=== PATIENT | male | born 1960 | race Hispanic/Latino ===

== ENCOUNTER 2019-05-05 10:29 | Emergency (ER) | payer MEDICARE ==
--- OUTSIDE RECORDS SUMMARY | 2019-05-05 10:31 | XMS REPORT | Summary of Care ---
:[address] [facility] Address [address] [place] [address] Care Team Providers Name Role Phone Brian Riley MD Primary Care Provider Reason for Visit Reason Comments Refill Request Encounter Details Date Type Department Care Team Description 11/16/2018 Refill [facility] Brian Riley MD Refill Request - [address] [address] [place] [address] Allergies No Known Allergiesdocumented as of this encounter (statuses as of 11/21/2018) Medications Medication Sig Dispensed Refills Start Date End Date Status lisinopril-hydrochloro Take 1 tablet by 90 tablet 4 03/29/2018 Active thiazide 20-25 mg per mouth every tabletIndications: morning. Essential hypertension gabapentin 300 mg Take 1 capsule 270 capsule 4 03/29/2018 Active capsuleIndications: by mouth 3 Low back pain of over (three) times 3 months duration daily. allopurinol 300 mg Take 1 tablet by 90 tablet 4 03/29/2018 Active tabletIndications: mouth every Idiopathic gout, morning. unspecified chronicity, unspecified site levothyroxine 75 mcg TAKE 1 TABLET BY 90 tablet 4 03/29/2018 Active tabletIndications: MOUTH EVERY Hypothyroidism, MORNING unspecified type DULoxetine 30 mg Take 3 capsules 270 capsule 4 03/29/2018 Active capsuleIndications: by mouth daily. 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 02/18/2017 Major depressive disorder 11/25/2016 Obesity (BMI 30-39.9) 05/27/2016 Morbid obesity with body mass index of 40.0-49.9 04/08/2016 Morbid obesity with body mass index of 50 or higher 04/08/2016 Pain 04/08/2016 Alcoholism in recovery 06/05/2015 Hypothyroid 06/05/2015 Essential hypertension 06/05/2015 Gout 06/05/2015 Alcoholism in remission documented as of this encounter (statuses as of 11/21/2018) Social History Tobacco Use Types Packs/Day Years Used Date Never Smoker Smokeless Tobacco: Never Used Alcohol Use Drinks/Week oz/Week Comments No 20 Shots of liquor 12.0 Former drinker - quit as of 0 Standard drinks or equivalent November 2016 Sex Assigned at Date Recorded Not on file Job Start Date Occupation Industry Not on file Not on file Not on file Travel History Travel Start Travel End No recent travel history available. documented as of this encounter Last Filed Vital Signs Not on filedocumented in this encounter Plan of Treatment Health Maintenance Due Date Last Done Comments HEPATITIS C (HCV) SCREEN 1960 PNEUMOCOCCAL 0-64 YEARS COMBINED SERIES (1 of 1 - 1964 PPSV23) DTaP,Tdap,and Td Vaccines (1 - Tdap) 1977 COLONOSCOPY 2008 Zoster Recombinant Vaccine (SHINGRIX) (1 of 2) 2008 INFLUENZA VACCINE (#1) 2018 documented as of this encounter Implants Implanted Type Area Multimedia Editor Device Shelf Model / Identifier Expiration Serial / Lot Date Cement CEMENT Right: Steve [id number] / Implanted: Qty: 2 on 04/08/2016 by Noel Sarmiento MD at [facility] Knee [id number] / [id number] Cement CEMENT Right: Steve 11/04/2020 [id number] / Implanted: Qty: 4 on 03/15/2017 by Murphy Greer MD at [facility] Knee [id number] / [id number] Bearing KNEE Right: Biomet 02/04/2021 [id number] / Implanted: Qty: 1 on 04/08/2016 by Noel Sarmiento MD at [facility] Knee [id number] / [id number] Femoral Right KNEE Right: Biomet 07/17/2024 [id number] / Implanted: Qty: 1 on 04/08/2016 by Noel Sarmiento MD at [facility] Knee [id number] / [id number] Distal Femoral Augment With [place] KNEE Right: Biomet 01/22/2026 [id number] / Implanted: Qty: 1 on 03/15/2017 by Murphy Greer MD at [facility] Knee [id number] / [id number] Vanguard Knee System Femmoral Right With Screw KNEE Right: Biomet 2026 [id number] / Implanted: Qty: 1 on 03/15/2017 by Murphy Greer MD at [facility] Knee [id number] / [id number] Distal Femoral Augment With [place] KNEE Right: Biomet 10/10/2026 [id number] / Implanted: Qty: 1 on 03/15/2017 by Murphy Greer MD at [facility] Knee [id number] / [id number] Dcm Tibial Bearing KNEE Right: Biomet 03/08/2018 [id number] / Implanted: Qty: 1 on 03/15/2017 by Murphy Greer MD at [facility] Knee [id number] / [id number] Tibial Augment With Bolts KNEE Right: Biomet 05/06/2026 [id number] / Implanted: Qty: 1 on 03/15/2017 by Murphy Greer MD at [facility] Knee [id number] / [id number] Tibial Cruciate Wing KNEE Right: Biomet 06/10/2025 [id number] / Implanted: Qty: 1 on 03/15/2017 by Murphy Greer MD at [facility] Knee [id number] / [id number] Tibial Tray KNEE Right: Biomet 11/02/2026 [id number] / Implanted: Qty: 1 on 03/15/2017 by Murphy Greer MD at [facility] Knee [id number] / [id number] Tibial Augment With Bolts KNEE Right: Biomet 05/06/2026 [id number] / Implanted: Qty: 1 on 03/15/2017 by Murphy Greer MD at [facility] Knee [id number] / [id number] Patella PATELLA Right: Biomet 02/19/2021 [id number] / Implanted: Qty: 1 on 04/08/2016 by Noel Sarmiento MD at [facility] Knee [id number] / [id number] Tibial Plate PLATE Right: Biomet 09/05/2024 [id number] / Implanted: Qty: 1 on 04/08/2016 by Noel Sarmiento MD at [facility] Knee [id number] / [id number] Splined Knee Stem V2 Stem Right: Biomet 02/05/2023 [id number] / Implanted: Qty: 1 on 03/15/2017 by Murphy Greer MD at [facility] Knee [id number] / [id number] Splined Knee Stem V2 Stem Right: Biomet 05/07/2023 [id number] / Implanted: Qty: 1 on 03/15/2017 by Murphy Greer MD at [facility] Knee [id number] / [id number] documented as of this encounter Results Not on filedocumented in this encounter Visit Diagnoses Diagnosis Erectile dysfunction, unspecified erectile dysfunction type documented in this encounter Insurance Payer Benefit Plan / Subscriber ID Effective Phone Address Type Group Dates [place] AARP MEDICARE [id number] 2016-Prese Medicare Adv HEALTHCARE - COMPLETE nt HMO MANAGED MEDICARE documented as of this encounter
--- OUTSIDE RECORDS SUMMARY | 2019-05-05 10:31 | XMS REPORT | Summary of Care ---
:1960 Author Organization [facility] [[email or web address]] - [facility] Address [address] [place] [address] Care Team Providers Name Role Phone Brian Riley MD Primary Care Provider Reason for Visit Reason Comments Refill Request Encounter Details Date Type Department Care Team Description 11/17/2018 Telephone [facility] Family Brian Riley, Refill Request Medicine - Hardeep MCCOY [address] [place] [address] [place] [address] [facility] [place] [phone] Allergies No Known Allergiesdocumented as of this encounter (statuses as of 11/17/2018) Medications Medication Sig Dispensed Refills Start Date End Date Status lisinopril-hydrochl Take 1 tablet 90 tablet 4 03/29/2018 Active orothiazide 20-25 by mouth every mg per morning. tabletIndications: Essential hypertension gabapentin 300 mg Take 1 capsule 270 capsule 4 03/29/2018 Active capsuleIndications: by mouth 3 Low back pain of (three) times over 3 months daily. duration allopurinol 300 mg Take 1 tablet 90 tablet 4 03/29/2018 Active tabletIndications: by mouth every Idiopathic gout, morning. unspecified chronicity, unspecified site levothyroxine 75 TAKE 1 TABLET 90 tablet 4 03/29/2018 Active mcg BY MOUTH tabletIndications: EVERY MORNING Hypothyroidism, unspecified type DULoxetine 30 mg Take 3 270 capsule 4 03/29/2018 Active capsuleIndications: capsules by Current moderate mouth daily. episode of major depressive disorder without prior episode sildenafil (VIAGRA) Take once a 4 tablet 12 11/17/2018 Active 100 mg day 1 hour tabletIndications: prior to Erectile sexual dysfunction, activity prn unspecified erectile dysfunction type sildenafil (VIAGRA) Take once a 2 tablet 12 07/05/2018 Discontinued 100 mg day 1 hour 9 tabletIndications: prior to Erectile sexual dysfunction, activity prn unspecified erectile dysfunction type documented as of this encounter (statuses as of 11/17/2018) Active Problems Problem Noted Date S/P revision [...] as of this encounter (statuses as of 11/17/2018) Social History Tobacco Use Types Packs/Day Years [...] of this encounter Implants Implanted Type Area Solar Sales Rep Device Shelf Model / Identifier Expiration Serial / Lot Date Cement CEMENT Right: Steve [id number] / Implanted: Qty: 2 on 04/08/2016 by Noel Sarmiento MD at [facility] Knee [id number] / [id number] Cement CEMENT Right: Steve 11/04/2020 [id number] / Implanted: Qty: 4 on 03/15/2017 by Murphy Greer MD at [facility] Knee [id number] / [id number] Bearing KNEE Right: Biomet 02/04/2021 [id number] / Implanted: Qty: 1 on 04/08/2016 by Noel Sarmiento MD at [facility] Knee [id number] / [id number] Femoral Right KNEE Right: Biomet 07/17/2024 115456 / Implanted: Qty: 1 on 04/08/2016 by Noel Sarmiento MD at [facility] Knee [id number] / [id number] Distal Femoral Augment With [place] KNEE Right: Biomet 01/22/2026 015074 / Implanted: Qty: 1 on 03/15/2017 by Murphy Greer MD at [facility] Knee [id number] / [id number] Vanguard Knee System Femmoral Right With Screw KNEE Right: Biomet 2026 113969 / Implanted: Qty: 1 on 03/15/2017 by Murphy Greer MD at [facility] Knee [id number] / [id number] Distal Femoral Augment With [place] KNEE Right: Biomet 10/10/2026 439405 / Implanted: Qty: 1 on 03/15/2017 by Murphy Greer MD at [facility] Knee [id number] / [id number] Dcm Tibial Bearing KNEE Right: Biomet 03/08/2018 046811 / Implanted: Qty: 1 on 03/15/2017 by Murphy Greer MD at [facility] Knee [id number] / [id number] Tibial Augment With Bolts KNEE Right: Biomet 05/06/2026 056298 / Implanted: Qty: 1 on 03/15/2017 by Murphy Greer MD at [facility] Knee [id number] / [id number] Tibial Cruciate Wing KNEE Right: Biomet 06/10/2025 446176 / Implanted: Qty: 1 on 03/15/2017 by Murphy Greer MD at [facility] Knee [id number] / [id number] Tibial Tray KNEE Right: Biomet 11/02/2026 944468 / Implanted: Qty: 1 on 03/15/2017 by Murphy Greer MD at [facility] Knee [id number] / [id number] Tibial Augment With Bolts KNEE Right: Biomet 05/06/2026 491489 / Implanted: Qty: 1 on 03/15/2017 by Murphy Greer MD at [facility] Knee [id number] / [id number] Patella PATELLA Right: Biomet 02/19/2021 [id number] / Implanted: Qty: 1 on 04/08/2016 by Noel Sarmiento MD at [facility] Knee [id number] / [id number] Tibial Plate PLATE Right: Biomet 09/05/2024 881317 / Implanted: Qty: 1 on 04/08/2016 by Noel Sarmiento MD at [facility] Knee [id number] / [id number] Splined Knee Stem V2 Stem Right: Biomet 02/05/2023 614777 / Implanted: Qty: 1 on 03/15/2017 by Murphy Greer MD at [facility] Knee 917680 / [id number] Splined Knee Stem V2 Stem Right: Biomet 05/07/2023 795606 / Implanted: Qty: 1 on 03/15/2017 by Murphy Greer MD at [facility] Knee [id number] / [id number] documented as of this encounter Results Not on filedocumented in this encounter Visit Diagnoses Diagnosis Erectile dysfunction, unspecified erectile dysfunction type - Primary documented in this encounter Insurance Payer Benefit Plan / Subscriber ID Effective Phone Address Type Group Dates [place] AARP MEDICARE [id number] 2016-Prese Medicare Adv HEALTHCARE - COMPLETE [facility] MANAGED MEDICARE documented as of this encounter
--- OUTSIDE RECORDS SUMMARY | 2019-05-05 10:31 | XMS REPORT ---
:1960 [facility] Address [address] [place] [address] [address] Care Team Providers Name Role Phone NICO MARKHAM Unavailable Unavailable Problems This patient has no known problems. Allergies, Adverse Reactions, Alerts This patient has no known allergies or adverse reactions. Medications This patient has no known medications. Results Test Description Test Time Test Comments Text Results Atomic Results Result Comments AFB CULTURE + SMEAR 2017-08-18 14:18:00 Test Item Value Reference Range Comments CULTURE (BEAKER) (test ygtv=7011) No acid-fast bacilli isolated in 42 days AFB SMEAR (BEAKER) (test zrxd=998) No acid fast bacilli seen FUNGUS CULTURE + [id number] 09:07:00 Test Item Value Reference Range Comments CULTURE (BEAKER) (test No fungus isolated in 28 days dxoq=9471) FUNGUS SMEAR (BEAKER) (test No fungi seen egty=1150) ANAEROBIC [id number] 02:43:00 Test Item Value Reference Range Comments CULTURE (BEAKER) (test zfco=0089) No anaerobes isolated SURGICALLY OBTAINED CULTURE + GRAM [id number] 10:55:00 Test Item Value Reference Range Comments CULTURE (BEAKER) (test iynt=0842) No growth GRAM STAIN RESULT (BEAKER) (test No WBCs dyjc=9804) GRAM STAIN RESULT (BEAKER) (test No organisms seen zljm=18998) SPIN/CONCENTRATION [id number] 22:18:00 Test Item Value Reference Range Comments CONCENTRATION CHARGED (BEAKER) (test evlf=9306) Done TISSUE [id number] 15:56:00Surgical Pathology Report Case: [id number] Authorizing Provider: Nico Markham Collected: 06/30/2017 0943 MD Johan [facility] Received: 2017 0958 SERVICES Pathologist: Lea Betts MD Specimen: Explant, RIGHT KNEE LINER RIGHT KNEE LINER, REMOVAL: - ORTHOPEDIC HARDWARE, GROSS IDENTIFICATION ONLY Signing Pathologist Direct Phone Line: [phone] signed by Lea Betts MD on 06/30/2017 at 3:56 [facility]/[id number] mechanical complications of internal left knee prosthesisRight knee linerThe specimen is received in a fluidless container labeled with the patient's information and labeled "right knee liner" and consists of orthopedic hardware, a spacer measuring 7.5 x 4 x 1 cm and metal hardware measuring 4.5 x 0.4 x 0.2 cm. The spacer's serial number is "[id number]". The specimen is submitted for gross identification./ewRAD, KNEE, 1 OR 2 VIEWS, [id number] 11:02:00Reason for exam:->tkaShould this be performed at the bedside?->YesFINAL REPORT Knee, right , two views INDICATION: TKA COMPARISON: None available IMPRESSION: There has been total knee arthroplasty with satisfactory hardware alignment and no evident periprosthetic fracture. There are operative changes in the soft tissues with edema and gas. There is gas and fluid in the joint space. An intraoperative report was not requested for this exam. Please refer to the operative note for additional details. Signed: Eugene Gutierrez MDReport VerifiedDate/Time: 06/30/2017 11:02:15 Reading Location: [facility] Radiology Reading Room
--- OUTSIDE RECORDS SUMMARY | 2019-05-05 10:31 | XMS REPORT | Summary of Care ---
:1960 Author Organization [facility] Address [address] [place] [address] Care Team Providers Name Role Phone Brian Riley MD Primary Care Provider Reason for Referral (Routine) Status Reason Specialty Diagnoses / Referred By Referred To Procedures Contact Contact New Request Patient is Diagnoses Arthritis of knee, left Brian Riley, Established with a Procedures CONSULT/REFERRAL ORTHOPAEDIC SURGERY MD Noel Ayala, Specific Provider [address] [place] [address] MD COLON [address] [place] [phone] [facility] Phone: [place] [address] Fax: Reason for Visit Reason Comments Referral/consult Encounter Details Date Type Department Care Team Description 11/18/2018 Telephone [facility] Family Brian Riley, Referral/ consult Medicine - Hardeep MCCOY [address] [place] [address] [place] [address] [place], [place] [phone] [address] Allergies No Known Allergiesdocumented as of this encounter (statuses as of 11/18/2018) Medications Medication Sig Dispensed Refills Start Date [...] prior episode sildenafil (VIAGRA) Take once a day 4 tablet 12 11/17/2018 Active 100 mg 1 hour prior to tabletIndications: sexual activity Erectile dysfunction, prn unspecified erectile dysfunction type documented as of this encounter (statuses as of 11/18/2018) Active Problems Problem Noted Date S/P revision [...] as of this encounter (statuses as of 11/18/2018) Social History Tobacco Use Types Packs/Day Years [...] of this encounter Implants Implanted Type Area Boring Machine Set Up Operator Jig Device Shelf Model / Identifier Expiration Serial / Lot Date Cement CEMENT Right: Steve [id number] / Implanted: Qty: 2 on 04/08/2016 by Noel Sarmiento MD at [facility] Knee [id number] / [id number] Cement CEMENT Right: Steve 11/04/202058-2364-292- / Implanted: Qty: 4 on 03/15/2017 by Murphy Greer MD at [facility] Knee [id number] / [id number] Bearing KNEE Right: Biomet 02/04/2021 263493 / Implanted: Qty: 1 on 04/08/2016 by Noel Sarmiento MD at [facility] Knee [id number] / [id number] Femoral Right KNEE Right: Biomet 07/17/2024 069037 / Implanted: Qty: 1 on 04/08/2016 by Noel Sarmiento MD at [facility] Knee [id number] / [id number] Distal Femoral Augment With [place] KNEE Right: Biomet 01/22/2026 208070 / Implanted: Qty: 1 on 03/15/2017 by Murphy Greer MD at [facility] Knee [id number] / [id number] Vanguard Knee System Femmoral Right With Screw KNEE Right: Biomet 2026 [id number] / Implanted: Qty: 1 on 03/15/2017 by Murphy Greer MD at [facility] Knee [id number] / [id number] Distal Femoral Augment With [place] KNEE Right: Biomet 10/10/2026 494063 / Implanted: Qty: 1 on 03/15/2017 by Murphy Greer MD at [facility] Knee [id number] / [id number] Dcm Tibial Bearing KNEE Right: Biomet 03/08/2018 [id number] / Implanted: Qty: 1 on 03/15/2017 by Murphy Greer MD at [facility] Knee [id number] / [id number] Tibial Augment With Bolts KNEE Right: Biomet 05/06/2026 108990 / Implanted: Qty: 1 on 03/15/2017 by Murphy Greer MD at [facility] Knee [id number] / [id number] Tibial Cruciate Wing KNEE Right: Biomet 06/10/2025 725837 / Implanted: Qty: 1 on 03/15/2017 by Murphy Greer MD at [facility] Knee 297989 / [id number] Tibial Tray KNEE Right: Biomet 11/02/2026 489110 / Implanted: Qty: 1 on 03/15/2017 by Murphy Greer MD at [facility] Knee [id number] / [id number] Tibial Augment With Bolts KNEE Right: Biomet 05/06/2026 995124 / Implanted: Qty: 1 on 03/15/2017 by Murphy Greer MD at [facility] Knee [id number] / [id number] Patella PATELLA Right: [employer]omet 02/19/2021 763657 / Implanted: Qty: 1 on 04/08/2016 by Noel Sarmiento MD at [facility] Knee [id number] / [id number] Tibial Plate PLATE Right: Biomet 09/05/2024 273222 / Implanted: Qty: 1 on 04/08/2016 by Noel Sarmiento MD at [facility] Knee [id number] / [id number] Splined Knee Stem V2 Stem Right: Biomet 02/05/2023 225873 / Implanted: Qty: 1 on 03/15/2017 by Murphy Greer MD at [facility] Knee [id number] / [id number] Splined Knee Stem V2 Stem Right: Biomet 05/07/2023 594956 / Implanted: Qty: 1 on 03/15/2017 by Murphy Greer MD at [facility] Knee 985384 / [id number] documented as of this encounter Results Not on filedocumented in this encounter Visit Diagnoses Diagnosis Arthritis of knee, left - Primary Unspecified arthropathy, lower leg documented in this encounter Insurance Payer Benefit Plan / Subscriber ID Effective Phone Address Type Group Dates [place] AARP MEDICARE [id number] 2016-Prese Medicare Adv HEALTHCARE - COMPLETE nt [place] MANAGED MEDICARE documented as of this encounter
--- OUTSIDE RECORDS SUMMARY | 2019-05-05 10:32 | XMS REPORT | Summary of Care ---
:1960 Author Organization [facility] - [facility] Address [address] [place] [address] Care Team Providers Name Role Phone Brian Riley MD Primary Care Provider Reason for Visit Reason Comments Physical Wellness Exam LAB WORK Encounter Details Date Type Department Care Team Description 04/12/2019 Office Visit [facility] Family Brian Riley Essential hypertension (Primary Dx); Medicine - [facility]ala MD Acquired hypothyroidism; [facility] [address] [place] [address] Idiopathic gout, unspecified chronicity, unspecified site; [place], [place] Benign prostatic hyperplasia, unspecified whether lower urinary tract symptoms present; [phone] Low back pain of over 3 months duration; [phone] Current moderate episode of major depressive disorder without prior episode Allergies No Known Allergiesdocumented as of this encounter (statuses as of 04/12/2019) Medications Medication Sig Dispensed Refills Start End Date Status Date lisinopril-hydroch Take 1 tablet 90 tablet 4 Active lorothiazide 20-25 by mouth every 9 mg per morning. tabletIndications: Essential hypertension allopurinol 300 mg Take 1 tablet 90 tablet 4 Active tabletIndications: by mouth every 9 Idiopathic gout, morning. unspecified chronicity, unspecified site levothyroxine 75 TAKE 1 TABLET 90 tablet 4 Active mcg BY MOUTH 9 tabletIndications: EVERY MORNING Hypothyroidism, unspecified type sildenafil Take once a 4 tablet 12 Active (VIAGRA) 100 mg day 1 hour 9 tabletIndications: prior to Erectile sexual dysfunction, activity prn unspecified erectile dysfunction type acetaminophen-code TAKE 1 TABLET 0 Active ine 300-60 mg BY MOUTH EVERY 0 tablet 4 TO 6 HOURS NEEDED etodolac 500 mg TAKE 1 TABLET 0 Active tablet BY MOUTH TWICE 0 DAILY NEEDED methocarbamol 750 Take 750 mg by 0 Active mg tablet mouth 2 (two) 0 times daily. gabapentin 300 mg Take 1 capsule 270 capsule 4 Active capsuleIndications by mouth 3 0 : Low back pain of (three) times over 3 months daily. duration DULoxetine 30 mg Take 3 270 capsule 4 Active capsuleIndications capsules by 0 : Current moderate mouth daily. episode of major depressive disorder without prior episode gabapentin 300 mg Take 1 capsule 270 capsule 4 04/12/19 Discontinued capsuleIndications by mouth 3 9 20 (Reorder) : Low back pain of (three) times over 3 months daily. duration DULoxetine 30 mg Take 3 270 capsule 4 04/12/19 Discontinued capsuleIndications capsules by 9 20 (Reorder) : Current moderate mouth daily. episode of major depressive disorder without prior episode meloxicam 7.5 mg meloxicam 7.5 0 04/12/19 Discontinued tablet mg tablet 20 documented as of this encounter (statuses as of 04/12/2019) Active Problems Problem Noted Date S/P revision [...] as of this encounter (statuses as of 04/12/2019) Social History Tobacco Use Types Packs/Day Years Used Date Never Smoker Smokeless Tobacco: Never Used Alcohol Use Drinks/Week oz/Week Comments No 20 Shots of liquor 20.0 Former drinker - quit as of 0 Standard drinks or equivalent November 2016 Sex Assigned at Date Recorded Not on file Job Start Date Occupation Industry Not on file Not on file Not on file Travel History Travel Start Travel End No recent travel history available. 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 Pulse 87 04/12/2019 9:21 AM [employer] DEVELOPER Temperature 36.9 C (98.5 F) 04/12/2019 9:21 AM [employer]EL[employer] DEVELOPER Respiratory Rate - - Oxygen Saturation - - Inhaled Oxygen Concentration - - Weight 123.8 kg (273 lb) 04/12/2019 9:21 AM [employer] DEVELOPER Height 180.3 cm (5' 11") 04/12/2019 9:21 AM [employer] DEVELOPER Body Mass Index 38.08 04/12/2019 9:21 AM 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 Total of 1 attempts were made. Slight pressure and a bandage/dressing were applied to the site(s). The patient experienced no complications. The following specimens were processed according to instructions and sent to [facility] laboratories per lab order on 04/12/19: LT BLUE SST RED LAV PPT DK GREEN (LiHep) DK GREEN (SodH) YOUNG DK BLUE (K2) DK BLUE (S) ACD Blood Culture NIPT/NTD Brian Barrios MD - 04/12/2019 9:30 AM CST CC: annual exam Kevin is a 58 year old male Patient with a lot of joint and muscle aches Just had Rx's filled for pain and spasm. Hypertension Chronicity: Chronic Relieved by: Diuretics and HUMBLE inhibitors Associated symptoms: no chest pain, no headaches, no palpitations, no peripheral edema and no shortness of breath Thyroid Problem Presents for follow-up visit. Patient reports no cold intolerance, constipation , diarrhea, heat intolerance, palpitations, weight gain or weight loss. The symptoms have been stable. No Known Allergies Current Outpatient Medications Medication Sig Dispense Refill acetaminophen-codeine 300-60 mg tablet TAKE 1 TABLET BY MOUTH EVERY 4 TO 6 HOURS NEEDED etodolac 500 mg tablet TAKE 1 TABLET BY MOUTH TWICE DAILY NEEDED methocarbamol 750 mg tablet Take 750 mg by mouth 2 (two) times daily. sildenafil (VIAGRA) 100 mg tablet Take once a day 1 hour prior to sexual activity prn 4 tablet 12 allopurinol 300 mg tablet Take 1 tablet by mouth every morning. 90 tablet 4 DULoxetine 30 mg capsule Take 3 capsules by mouth daily. 270 capsule 4 gabapentin 300 mg capsule Take 1 capsule by mouth 3 (three) times daily. 270 capsule 4 levothyroxine 75 mcg tablet TAKE 1 TABLET BY MOUTH EVERY MORNING 90 tablet 4 lisinopril-hydrochlorothiazide 20-25 mg per tablet Take 1 tablet by mouth every morning. 90 tablet 4 No current facility-administered medications for this visit. Past Medical History: Diagnosis Date Alcoholism in remission Depression Diverticulitis ED (erectile dysfunction) Gout Hypertension Substance abuse Thyroid disease Past Surgical History: Procedure Laterality Date ANKLE ORIF Right ARTHROSCOPIC SHOULDER ROTATOR CUFF REPAIR Bilateral CHOLECYSTECTOMY COLONOSCOPY N/A 07/29/2016 Surgeon: Emely Vivas MD; [facility] ESOPHAGOGASTRODUODENOSCOPY N/A 07/29/2016 Surgeon: Emely Vivas MD; [facility] KNEE ARTHROSCOPY Bilateral LAPAROSCOPIC BARIATRIC GASTRIC BYPASS MANIPULATION UNDER ANESTHESIA Right 05/27/2016 Surgeon: Noel Sarmiento MD; [facility] PARTIAL 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 HI COLONOSCOPY W/BIOPSY SINGLE/MULTIPLE 07/29/2016 HI ESOPHAGOGASTRODUODENOSCOPY TRANSORAL DIAGNOSTIC 07/29/2016 TONSILLECTOMY TOTAL KNEE ARTHROPLASTY Right 04/08/2016 Surgeon: Noel Sarmiento MD; [facility] TOTAL KNEE ARTHROPLASTY REVISION Right 03/15/2017 Surgeon: Murphy Greer MD; [facility] Social History Socioeconomic History Marital status: Spouse name: Gail Virgen Number of children: Not on file Years of education: Not on file Highest education level: Not on file Occupational History Not on file Social Needs Financial resource strain: Not on file Food insecurity: Worry: Not on file Inability: Not on file Transportation needs: Medical: Not on file Non-medical: Not on file Tobacco Use Smoking status: Never Smoker Smokeless tobacco: Never Used Substance and Sexual Activity Alcohol use: No Alcohol/week: 20.0 standard drinks Types: 20 Shots of liquor per week Comment: Former drinker - quit as of November 2016 Drug use: No Sexual activity: Not Currently Partners: Female Lifestyle Physical activity: Days per week: Not on file Minutes per session: Not on file Stress: Not on file Relationships Social connections: Talks on phone: Not on file Gets together: Not on file Attends episcopal service: Not on file Active member of club or organization: Not on file Attends meetings of clubs or organizations: Not on file Relationship status: Not on file Intimate partner violence: Fear of current or ex partner: Not on file Emotionally abused: Not on file Physically abused: Not on file Forced sexual activity: Not on file Other Topics Concern Not on file Social History Narrative On disability Lives with . Family History Problem Relation Age of Onset Diabetes Mother Thyroid Mother Coronary Heart Disease Father Hypertension Father High cholesterol Father Review of Systems Constitutional: Negative for weight gain and weight loss. Respiratory: Negative for shortness of breath. Cardiovascular: Negative for chest pain and palpitations. Gastrointestinal: Negative for constipation and diarrhea. Neurological: Negative for headaches. Hematological: Negative for cold intolerance and heat intolerance. Endocrine: Negative for cold intolerance, heat intolerance, weight gain and weight loss. BP (!) 140/103 | Pulse 87 | Temp 36.9 C (98.5 F) (Oral) | Ht 5' 11" ( 1.803 m) | Wt 273 lb (123.8 kg) | BMI 38.08 kg/m Physical Exam Constitutional: He is oriented to person, place, and time. He appears well- developed and well-nourished. HENT: Head: Normocephalic and atraumatic. Eyes: Conjunctivae are normal. Neck: Normal range of motion. Neck supple. No JVD present. No tracheal deviation present. No thyromegaly present. Cardiovascular: Normal rate, regular rhythm, normal heart sounds and intact distal pulses. Exam reveals no gallop and no friction rub. No murmur heard. Pulmonary/Chest: Effort normal and breath sounds normal. No respiratory distress. He has no wheezes.He has no rales. He exhibits no tenderness. Abdominal: Soft. Bowel sounds are normal. He exhibits no distension and no mass. There is no tenderness. There is no rebound and no guarding. Musculoskeletal: Normal range of motion. He exhibits no edema or tenderness. Lymphadenopathy: He has no cervical adenopathy. Neurological: He is alert and oriented to person, place, and time. Skin: Skin is warm and dry. Diagnosis: 1. Essential hypertension CBC WITH DIFF COMP. METABOLIC PANEL (02089) LIPID PANEL (42328)(TOTAL CHOLESTEROL, TRIGLYCERIDES, HDL) CBC WITH DIFFERENTIAL 2. Acquired hypothyroidism THYROID STIMULATING HORMONE FREE T4 3. Idiopathic gout, unspecified chronicity, unspecified site URIC ACID 4. Benign prostatic hyperplasia, unspecified whether lower urinary tract symptoms present PROSTATICSPECIFIC ANTIGEN 5. Low back pain of over 3 months duration gabapentin 300 mg capsule 6. Current moderate episode of major depressive disorder without prior episode DULoxetine 30 mg capsule Follow up: prn Patient Care Team: Brian Riley MD as PCP - General ([facility]-FAMILY MEDICINE) Plan of care, desired health behaviors, goals,& medication discussed with patient. Education resources & self management tools provided and reviewed with AVS. Patient/guardian/family verbalized understanding & agrees to plan of care. Barriers to care: None Ability to manage care: Good documented in this encounter Plan of Treatment Name Type Priority Associated Diagnoses Order Schedule URIC ACID LAB Routine Idiopathic gout, Ordered: 04/12/2019 unspecified chronicity, unspecified site CBC WITH DIFF LAB Routine Essential hypertension Ordered: 04/12/2019 COMP. METABOLIC PANEL LAB Routine Essential hypertension Ordered: 2019 (34520) LIPID PANEL (28200)(TOTAL LAB Routine Essential hypertension Ordered: 04/12 CHOLESTEROL, TRIGLYCERIDES, HDL) PROSTATIC SPECIFIC LAB Routine Benign prostatic Ordered: 04/12/2019 ANTIGEN hyperplasia, unspecified whether lower urinary tract symptoms present THYROID STIMULATING LAB Routine Acquired hypothyroidism Ordered: 04/12/2019 HORMONE FREE T4 LAB Routine Acquired hypothyroidism Ordered: 04/12/2019 CBC WITH DIFFERENTIAL LAB Routine Essential hypertension Ordered: 2019 Health Maintenance Due Date Last Done Comments HEPATITIS C (HCV) SCREEN 1960 PNEUMOCOCCAL 0-64 YEARS COMBINED SERIES (1 of - 1964 PPSV23) DTaP,Tdap,and Td Vaccines (1 - Tdap) 1969 COLONOSCOPY 2008 Zoster Recombinant Vaccine (SHINGRIX) (1 of 2) 2008 INFLUENZA VACCINE (#1) 2018 documented as of this encounter Implants Implanted Type Area Exhibits Manager Device Shelf Model / Identifier Expiration Serial / Lot Date Cement CEMENT Right: Steve [id number] / Implanted: Qty: 2 on 04/08/2016 by Noel Sarmiento MD at [facility] Knee [id number] / [id number] Cement CEMENT Right: Steve 11/04/202048-8789-234- / Implanted: Qty: 4 on 03/15/2017 by Murphy Greer MD at [facility] [place] [id number] / [id number] Bearing KNEE Right: Biomet 02/04/2021 [id number] / Implanted: Qty: 1 on 04/08/2016 by Noel Sarmiento MD at [facility] [place] [id number] / [id number] Femoral Right KNEE Right: Biomet 07/17/2024 [id number] / Implanted: Qty: 1 on 04/08/2016 by Noel Sarmiento MD at [facility] [place] [id number] / [id number] Distal Femoral Augment With [place] KNEE Right: Biomet 01/22/2026 [id number] / Implanted: Qty: 1 on 03/15/2017 by Murphy Greer MD at [facility] [place] [id number] / [id number] Vanguard Knee System Femmoral Right With Screw KNEE Right: Biomet 2026 [id number] / Implanted: Qty: 1 on 03/15/2017 by Murphy Greer MD at [facility] [place] [id number] / [id number] Distal Femoral Augment With [place] KNEE Right: Biomet 10/10/2026 [id number] / Implanted: Qty: 1 on 03/15/2017 by Murphy Greer MD at [facility] [place] [id number] / [id number] Dcm Tibial Bearing KNEE Right: Biomet 03/08/2018 [id number] / Implanted: Qty: 1 on 03/15/2017 by Murphy Greer MD at [facility] [place] [id number] / [id number] Tibial Augment With Bolts KNEE Right: Biomet 05/06/2026 [id number] / Implanted: Qty: 1 on 03/15/2017 by Murphy Greer MD at [facility] [place] [id number] / [id number] Tibial Cruciate Wing KNEE Right: [employer]omet 06/10/2025 [id number] / Implanted: Qty: 1 on 03/15/2017 by Murphy Greer MD at [facility] [place] [id number] / [id number] Tibial Tray KNEE Right: [employer]omet 11/02/2026 [id number] / Implanted: Qty: 1 on 03/15/2017 by Murphy Greer MD at [facility] [place] [id number] / [id number] Tibial Augment With Bolts KNEE Right: Biomet 05/06/2026 [id number] / Implanted: Qty: 1 on 03/15/2017 by Murphy Greer MD at [facility] [place] [id number] / [id number] Patella PATELLA Right: [employer]omet 02/19/2021 [id number] / Implanted: Qty: 1 on 04/08/2016 by Noel Sarmiento MD at [facility] [place] [id number] / [id number] Tibial Plate PLATE Right: Biomet 09/05/2024 [id number] / Implanted: Qty: 1 on 04/08/2016 by Noel Sarmiento MD at [facility] [place] [id number] / [id number] Splined Knee Stem V2 Stem Right: Biomet 02/05/2023 [id number] / Implanted: Qty: 1 on 03/15/2017 by Murphy Greer MD at [facility] [place] [id number] / [id number] Splined Knee Stem V2 Stem Right: Biomet 05/07/2023 [id number] / Implanted: Qty: 1 on 03/15/2017 by Murphy Greer MD at [facility] [place] [id number] / [id number] documented as of this encounter Results Not on filedocumented in this encounter Visit Diagnoses Diagnosis Essential hypertension - Primary Unspecified essential hypertension Acquired hypothyroidism Unspecified hypothyroidism Idiopathic gout, unspecified chronicity, unspecified site Benign prostatic hyperplasia, unspecified whether lower urinary tract symptoms present Low back pain of over 3 months duration Current moderate episode of major depressive disorder without prior episode documented in this encounter Insurance Payer Benefit Plan / Subscriber ID Effective Phone Address Type Group Dates BOVILL TABITHA/DALIA [id number] 2019-Prese Medicare [facility] documented as of this encounter
--- OUTSIDE RECORDS SUMMARY | 2019-05-05 10:32 | XMS REPORT | Summary of Care ---
:1960 [address] [facility] - Health Address [address] [place] [address] Care Team Providers Name Role Phone Brian Riley MD Primary Care Provider Encounter Details Date Type Department Care Team Description 04/12/[address] [facility] Doctor Unassigned, No [address] [facility] Name [place] [id number] [address] [place] [address] Allergies No Known Allergiesdocumented as of this encounter (statuses as of 04/12/2019) Medications Medication Sig Dispensed Refills Start Date [...] Take once a day 4 tablet 12 12/07/2018 Active 100 mg 1 hour prior to [...] filedocumented in this encounter Plan of Treatment Date Type Specialty Care Team Description 04/12/2019 Office Visit Family Medicine Brian Riley MD [address] [place] [address] [place] [address] Health Maintenance Due Date Last Done Comments HEPATITIS C (HCV) SCREEN 1960 PNEUMOCOCCAL 0-64 YEARS COMBINED SERIES (1 of 1 - 1964 PPSV23) DTaP,Tdap,and Td Vaccines (1 - Tdap) 1969 COLONOSCOPY 2008 Zoster Recombinant Vaccine (SHINGRIX) (1 of 2) 2008 INFLUENZA VACCINE (#1) 2018 documented as of this encounter Implants Implanted Type Area Forest Fire Officer Device Shelf Model / Identifier Expiration Serial / Lot Date Cement CEMENT Right: Steve [id number] / Implanted: Qty: 2 on 04/08/2016 by Noel Sarmiento MD at [facility] [place] [id number] / [id number] Cement CEMENT Right: Steve 11/04/202033-4496-778-01 / Implanted: Qty: 4 on 03/15/2017 by Murphy Greer MD at [facility] [place] [id number] / [id number] Bearing KNEE Right: [employer]omet 02/04/2021 [id number] / Implanted: Qty: 1 on 04/08/2016 by Noel Sarmiento MD at [facility] [place] [id number] / [id number] Femoral Right KNEE Right: Biomet 07/17/2024 [id number] / Implanted: Qty: 1 on 04/08/2016 by Noel Sarmiento MD at [facility] [place] [id number] / [id number] Distal Femoral Augment With [place] KNEE Right: [employer]omet 01/22/2026 [id number] / Implanted: Qty: 1 on 03/15/2017 by Murphy Greer MD at [facility] [place] [id number] / [id number] Vanguard Knee System Femmoral Right With Screw KNEE Right: Biomet 2026 [id number] / Implanted: Qty: 1 on 03/15/2017 by Murphy Greer MD at [facility] [place] [id number] / [id number] Distal Femoral Augment With [place] KNEE Right: Biomet 10/10/2026 [id number] / Implanted: Qty: 1 on 03/15/2017 by Murphy Greer MD at [facility] [place] [id number] / [id number] Dcm Tibial Bearing KNEE Right: [employer]omet 03/08/2018 [id number] / Implanted: Qty: 1 on 03/15/2017 by Murphy Greer MD at [facility] [place] [id number] / [id number] Tibial Augment With Bolts KNEE Right: Biomet 05/06/2026 [id number] / Implanted: Qty: 1 on 03/15/2017 by Murphy Greer MD at [facility] [place] [id number] / [id number] Tibial Cruciate Wing KNEE Right: [employer]omet 06/10/2025 [id number] / Implanted: Qty: 1 on 03/15/2017 by Murphy Greer MD at [facility] [place] [id number] / [id number] Tibial Tray KNEE Right: [employer]omet 11/02/2026 092926 / Implanted: Qty: 1 on 03/15/2017 by Murphy Greer MD at [facility] [place] [id number] / [id number] Tibial Augment With Bolts KNEE Right: [employer]omet 05/06/2026 [id number] / Implanted: Qty: 1 on 03/15/2017 by Murphy Greer MD at [facility] [place] [id number] / [id number] Patella PATELLA Right: [employer]omet 02/19/2021 [id number] / Implanted: Qty: 1 on 04/08/2016 by Noel Sarmiento MD at [facility] [place] [id number] / [id number] Tibial Plate PLATE Right: [employer]omet 09/05/2024 071652 / Implanted: Qty: 1 on 04/08/2016 by Noel Sarmiento MD at [facility] [place] [id number] / [id number] Splined Knee Stem V2 Stem Right: [employer]omet 02/05/2023 [id number] / Implanted: Qty: 1 on 03/15/2017 by Murphy Greer MD at [facility] [place] [id number] / [id number] Splined Knee Stem V2 Stem Right: [employer]omet 05/07/2023 [id number] / Implanted: Qty: 1 on 03/15/2017 by Murphy Greer MD at [facility] [place] [id number] / [id number] documented as of this encounter Procedures Procedure Name Priority Date/Time Associated Diagnosis Comments ASSIGNMENT OF BENEFITS Routine 04/12/2019 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
--- OUTSIDE RECORDS SUMMARY | 2019-05-05 10:32 | XMS REPORT | Summary of Care ---
:1960 Author Organization [facility] - [facility] Address [address] [place] [address] Care Team Providers Name Role Phone Brian Riley MD Primary Care Provider Reason for Visit Reason Comments Physical Wellness Exam Encounter Details Date Type Department Care Team Description 04/12/2019 Office Visit [facility] Family Brian Riley Essential hypertension (Primary Dx); Medicine - Hardeep Ayala MD Acquired hypothyroidism; [facility] [address] [place] [address] Idiopathic gout, unspecified chronicity, unspecified site; [place], [place] Benign prostatic hyperplasia, unspecified whether lower urinary tract symptoms present; [phone] Low back pain of over 3 months duration; [phone] Current moderate episode of major depressive disorder [...] Comments Blood Pressure 140/103 04/12/2019 9:21 AM 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 Pulse 87 04/12/2019 9:21 AM BRUSHER TENDER Temperature 36.9 C (98.5 F) 04/12/2019 9:21 AM BRUSHER TENDER Respiratory Rate - - Oxygen Saturation - - Inhaled Oxygen Concentration - - Weight 123.8 kg (273 lb) 04/12/2019 9:21 AM BRUSHER TENDER Height 180.3 cm (5' 11") 04/12/2019 9:21 AM BRUSHER TENDER Body Mass Index 38.08 04/12/2019 9:21 AM BRUSHER TENDER documented in this encounter Progress Notes Brian Riley MD - 04/12/2019 9:30 AM CST CC: [...] N/A 07/29/2016 Surgeon: Emely Vivas MD; Location: [facility] OR Location ESOPHAGOGASTRODUODENOSCOPY N/A 07/29/2016 Surgeon: Emely Vivas MD; Location: [facility] OR Location KNEE ARTHROSCOPY Bilateral LAPAROSCOPIC BARIATRIC GASTRIC BYPASS MANIPULATION UNDER ANESTHESIA Right 05/27/2016 Surgeon: Noel Sarmiento MD; Location: [facility] OR Location PARTIAL 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 IN COLONOSCOPY W/BIOPSY SINGLE/MULTIPLE 07/29/2016 [place] ESOPHAGOGASTRODUODENOSCOPY TRANSORAL DIAGNOSTIC 07/29/2016 TONSILLECTOMY TOTAL KNEE ARTHROPLASTY Right 04/08/2016 Surgeon: Noel Sarmiento MD; Location: [facility] OR Location TOTAL KNEE ARTHROPLASTY REVISION Right 03/15/2017 Surgeon: Murphy Greer MD; Location: [facility] OR [facility] Social History Socioeconomic History Marital status: Spouse [...] file Gets together: Not on file Attends christian service: Not on file Active member of [...] hypertension CBC WITH DIFF COMP. METABOLIC PANEL (74555) LIPID PANEL (31760)(TOTAL CHOLESTEROL, TRIGLYCERIDES, HDL) CBC WITH DIFFERENTIAL 2. [...] PANEL LAB Routine Essential hypertension Ordered: 2019 (68684) LIPID PANEL (19067)(TOTAL LAB Routine Essential hypertension Ordered: 04/12 CHOLESTEROL, [...] of this encounter Implants Implanted Type Area Piecer Device Shelf Model / Identifier Expiration Serial / Lot Date Cement CEMENT Right: Steve [id number] / Implanted: Qty: 2 on 04/08/2016 by Noel Sarmiento MD at [facility] Knee [id number] / [id number] Cement CEMENT Right: Steve 11/04/202097-1891-275-01 / Implanted: Qty: 4 on 03/15/2017 by Murphy Greer MD at [facility] [id number] / [id number] Bearing KNEE Right: Biomet 02/04/2021 [id number] / Implanted: Qty: 1 on 04/08/2016 by Noel Sarmiento MD at [facility] [id number] / [id number] Femoral Right KNEE Right: Biomet 07/17/2024 [id number] / Implanted: Qty: 1 on 04/08/2016 by Noel Sarmiento MD at [facility] [id number] / [id number] Distal Femoral Augment With [place] KNEE Right: Biomet 01/22/2026 [id number] / Implanted: Qty: 1 on 03/15/2017 by Murphy Greer MD at [facility] [id number] / [id number] Vanguard Knee System Femmoral Right With Screw KNEE Right: Biomet 2026 [id number] / Implanted: Qty: 1 on 03/15/2017 by Murphy Greer MD at [facility] [id number] / [id number] Distal Femoral Augment With [place] KNEE Right: Biomet 10/10/2026 [id number] / Implanted: Qty: 1 on 03/15/2017 by Murphy Greer MD at [facility] [id number] / [id number] Dcm Tibial Bearing KNEE Right: Biomet 03/08/2018 [id number] / Implanted: Qty: 1 on 03/15/2017 by Murphy Greer MD at [facility] [id number] / [id number] Tibial Augment With Bolts KNEE Right: Biomet 05/06/2026 [id number] / Implanted: Qty: 1 on 03/15/2017 by Murphy Greer MD at [facility] [id number] / [id number] Tibial Cruciate Wing KNEE Right: Biomet 06/10/2025 [id number] / Implanted: Qty: 1 on 03/15/2017 by Murphy Greer MD at [facility] [id number] / [id number] Tibial Tray KNEE Right: Biomet 11/02/2026 [id number] / Implanted: Qty: 1 on 03/15/2017 by Murphy Greer MD at [facility] [id number] / [id number] Tibial Augment With Bolts KNEE Right: Biomet 05/06/2026 [id number] / Implanted: Qty: 1 on 03/15/2017 by Murphy Greer MD at [facility] [id number] / [id number] Patella PATELLA Right: Biomet 02/19/2021 [id number] / Implanted: Qty: 1 on 04/08/2016 by Noel Sarmiento MD at [facility] [place] [id number] / [id number] Tibial Plate PLATE Right: Biomet 09/05/2024 [id number] / Implanted: Qty: 1 on 04/08/2016 by Noel Sarmiento MD at [facility] [id number] / [id number] Splined Knee Stem V2 Stem Right: Biomet 02/05/2023 [id number] / Implanted: Qty: 1 on 03/15/2017 by Murphy Greer MD at [facility] [id number] / [id number] Splined Knee Stem V2 Stem Right: Biomet 05/07/2023 [id number] / Implanted: Qty: 1 on 03/15/2017 by Murphy Greer MD at [facility] [id number] / [id number] documented as of this encounter Results Not [...] ID Effective Phone Address Type Group Dates [facility] [id number] 2019-Prese Medicare Adv HEALTHCARE - [facility] documented as of this encounter
--- OUTSIDE RECORDS SUMMARY | 2019-05-05 10:32 | XMS REPORT | Summary of Care ---
:1960 Author Organization [facility] - [facility] Address [address] [place] [address] Care Team Providers Name Role Phone Brian Riley MD Primary Care Provider Reason for Visit Reason Comments Physical Wellness Exam Encounter Details Date Type Department Care Team Description 04/12/2019 Office Visit [facility] Family Brian Riley Essential hypertension (Primary Dx); Medicine - Hardeep Ayala MD Acquired hypothyroidism; [facility] [address] [place] [address] Idiopathic gout, unspecified chronicity, unspecified site; [place], [place] Benign prostatic hyperplasia, unspecified whether lower urinary tract symptoms present; [phone] Low back pain of over 3 months duration; [phone] Current moderate episode of major depressive disorder [...] Comments Blood Pressure 140/103 04/12/2019 9:21 AM 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 Pulse 87 04/12/2019 9:21 AM HISTORY 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 Temperature 36.9 C (98.5 F) 04/12/2019 9:21 AM HISTORY 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 Respiratory Rate - - Oxygen Saturation - - Inhaled Oxygen Concentration - - Weight 123.8 kg (273 lb) 04/12/2019 9:21 AM HISTORY 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 Height 180.3 cm (5' 11") 04/12/2019 9:21 AM HISTORY 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 Body Mass Index 38.08 04/12/2019 9:21 AM HISTORY 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 documented in this encounter Progress Notes Brian Riely MD - 04/12/2019 9:30 AM CST CC: [...] N/A 07/29/2016 Surgeon: Emely Vivas MD; Location: [facility] OR Location ESOPHAGOGASTRODUODENOSCOPY N/A 07/29/2016 Surgeon: Emely Vivas MD; Location: [facility] OR Location KNEE ARTHROSCOPY Bilateral LAPAROSCOPIC BARIATRIC GASTRIC BYPASS MANIPULATION UNDER ANESTHESIA Right 05/27/2016 Surgeon: Noel Sarmiento MD; Location[facility] Location 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 METABOLIC PANEL (80318) LIPID PANEL (51882)(TOTAL CHOLESTEROL, TRIGLYCERIDES, HDL) CBC WITH DIFFERENTIAL 2. [...] PANEL LAB Routine Essential hypertension Ordered: 2019 (25903) LIPID PANEL (86555)(TOTAL LAB Routine Essential hypertension Ordered: 04/12 CHOLESTEROL, [...] of this encounter Implants Implanted Type Area Diffuser Operator Device Shelf Model / Identifier Expiration Serial / Lot Date Cement CEMENT Right: Steve [id number] / Implanted: Qty: 2 on 04/08/2016 by Noel Sarmiento MD at [facility] [place] [id number] / [id number] Cement CEMENT Right: Steve 11/04/202089-8882-314-01 / Implanted: Qty: 4 on 03/15/2017 by Murphy Greer MD at [facility] [place] [id number] / [id number] Bearing KNEE Right: Biomet 02/04/2021 [id number] / Implanted: Qty: 1 on 04/08/2016 by Noel Sarmiento MD at [facility] [place] [id number] / [id number] Femoral Right KNEE Right: Biomet 07/17/2024 [id number] / Implanted: Qty: 1 on 04/08/2016 by Noel Sarmietno MD at [facility] [place] [id number] / [id number] Distal Femoral Augment With [place] KNEE Right: Biomet 01/22/2026 [id number] / Implanted: Qty: 1 on 03/15/2017 by Murphy Greer MD at [facility] [place] [id number] / [id number] Vanguard Knee System Femmoral Right With Screw KNEE Right: Biomet 2026 [id number] / Implanted: Qty: 1 on 03/15/2017 by Murphy Greer MD at [facility] [place] [id number] / [id number] Distal Femoral Augment With [place] KNEE Right: Biomet 10/10/2026 [id number] / Implanted: Qty: 1 on 03/15/2017 by Murphy Greer MD at [facility] [place] [id number] / [id number] Dcm Tibial Bearing KNEE Right: Biomet 03/08/2018 [id number] / Implanted: Qty: 1 on 03/15/2017 by Murphy Greer MD at [facility] [place] [id number] / [id number] Tibial Augment With Bolts KNEE Right: Biomet 05/06/2026 [id number] / Implanted: Qty: 1 on 03/15/2017 by Murphy Greer MD at [facility] [place] [id number] / [id number] Tibial Cruciate Wing KNEE Right: Biomet 06/10/2025 [id number] / Implanted: Qty: 1 on 03/15/2017 by Murphy Greer MD at [facility] [place] [id number] / [id number] Tibial Tray KNEE Right: Biomet 11/02/2026 [id number] / Implanted: Qty: 1 on 03/15/2017 by Murphy Greer MD at [facility] [place] [id number] / [id number] Tibial Augment With Bolts KNEE Right: Biomet 05/06/2026 [id number] / Implanted: Qty: 1 on 03/15/2017 by Murphy Greer MD at [facility] [place] [id number] / [id number] Patella PATELLA Right: Biomet 02/19/2021 111170 / Implanted: Qty: 1 on 04/08/2016 by Noel Sarmiento MD at [facility] [place] [id number] / [id number] Tibial Plate PLATE Right: Biomet 09/05/2024 [id number] / Implanted: Qty: 1 on 04/08/2016 by Noel Sarmiento MD at [facility] [place] [id number] / [id number] Splined Knee Stem V2 Stem Right: Biomet 02/05/2023 [id number] / Implanted: Qty: 1 on 03/15/2017 by Murphy Greer MD at [facility] [place] [id number] / [id number] Splined Knee Stem V2 Stem Right: Biomet 05/07/2023 376875 / Implanted: Qty: 1 on 03/15/2017 by Murphy Greer MD at [facility] [place] [id number] / [id number] documented as of this encounter Results Not [...] ID Effective Phone Address Type Group Dates [facility] [id number] 2019-Prese Medicare Adv HEALTHCARE [facility] documented as of this encounter
--- OUTSIDE RECORDS SUMMARY | 2019-05-05 10:33 | XMS REPORT | Summary of Care ---
:1960 Author Organization [facility] Address [address] [place] [address] Care Team Providers Name Role Phone Brian Riley MD Primary Care Provider Reason for Visit Reason Comments Refill Request Encounter Details Date Type Department Care Team Description 04/30/2019 Refill [facility] Family Medicine Brian Riley MD Refill Request - [address] [phone] [place] [phone] Allergies No Known Allergiesdocumented as of this encounter (statuses as of 05/01/2019) Medications Medication Sig Dispensed Refills Start Date End Date Status sildenafil (VIAGRA) Take once a 4 tablet 12 12/07/2018 Active 100 mg day 1 hour tabletIndications: prior to Erectile sexual dysfunction, activity prn unspecified erectile dysfunction type acetaminophen-codei TAKE 1 TABLET 0 04/05/2019 Active ne 300-60 mg tablet BY MOUTH EVERY 4 TO 6 HOURS NEEDED etodolac 500 mg TAKE 1 TABLET 0 03/23/2019 Active tablet BY MOUTH TWICE DAILY NEEDED methocarbamol 750 Take 750 mg by 0 04/04/2019 Active mg tablet mouth 2 (two) times daily. gabapentin 300 mg Take 1 capsule 270 capsule 4 04/12/2019 Active capsuleIndications: by mouth 3 Low back pain of (three) times over 3 months daily. duration DULoxetine 30 mg Take 3 270 capsule 4 04/12/2019 Active capsuleIndications: capsules by Current moderate mouth daily. episode of major depressive disorder without prior episode LISINOPRIL-HYDROCHL TAKE 1 TABLET 90 tablet 4 05/01/2019 Active OROTHIAZIDE 20-25 BY MOUTH mg per EVERY MORNING tabletIndications: Essential hypertension LEVOTHYROXINE 75 TAKE 1 TABLET 90 tablet 4 05/01/2019 Active mcg BY MOUTH tabletIndications: EVERY MORNING Hypothyroidism, unspecified type ALLOPURINOL 300 mg TAKE 1 TABLET 90 tablet 4 05/01/2019 Active tabletIndications: BY MOUTH Idiopathic gout, EVERY MORNING unspecified chronicity, unspecified site lisinopril-hydrochl Take 1 tablet 90 tablet 4 03/29/2018 Discontinued orothiazide 20-25 by mouth every 0 mg per morning. tabletIndications: Essential hypertension allopurinol 300 mg Take 1 tablet 90 tablet 4 03/29/2018 Discontinued tabletIndications: by mouth every 0 Idiopathic gout, morning. 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 Device Shelf Model / Identifier Expiration Serial / Lot Date Cement CEMENT Right: Steve [id number] / Implanted: Qty: 2 on 04/08/2016 by Noel Sarmiento MD at [facility] Knee [id number] / [id number] Cement CEMENT Right: Steve 11/04/202001-7230-147- / Implanted: Qty: 4 on 03/15/2017 by Murphy Greer MD at [facility] Knee [id number] / [id number] Bearing KNEE Right: Biomet 02/04/2021 [id number] / Implanted: Qty: 1 on 04/08/2016 by Noel Sarmiento MD at [facility] Knee [id number] / [id number] Femoral Right KNEE Right: Biomet 07/17/2024 396579 / Implanted: Qty: 1 on 04/08/2016 by Noel Sarmiento MD at [facility] Knee [id number] / [id number] Distal Femoral Augment With [place] KNEE Right: Biomet 01/22/2026 [id number] / Implanted: Qty: 1 on 03/15/2017 by Murphy Greer MD at [facility] K[place] [id number] / [id number] Vanguard Knee System Femmoral Right With Screw KNEE Right: Biomet 2026 [id number] / Implanted: Qty: 1 on 03/15/2017 by Murphy Greer MD at [facility] [place] [id number] / [id number] Distal Femoral Augment With [place] KNEE Right: Biomet 10/10/2026 266254 / Implanted: Qty: 1 on 03/15/2017 by Murphy Greer MD at [facility] K[place] [id number] / [id number] Dcm Tibial Bearing KNEE Right: Biomet 03/08/2018 [id number] / Implanted: Qty: 1 on 03/15/2017 by Murphy Greer MD at [facility] K[place] [id number] / [id number] Tibial Augment With Bolts KNEE Right: Biomet 05/06/2026 [id number] / Implanted: Qty: 1 on 03/15/2017 by Murphy Greer MD at [facility] [place] [id number] / [id number] Tibial Cruciate Wing KNEE Right: Biomet 06/10/2025 194250 / Implanted: Qty: 1 on 03/15/2017 by Murphy Greer MD at [facility] K[place] [id number] / [id number] Tibial Tray KNEE Right: Biomet 11/02/2026 154165 / Implanted: Qty: 1 on 03/15/2017 by Murphy Greer MD at [facility] Knee [id number] / [id number] Tibial Augment With Bolts KNEE Right: Biomet 05/06/2026 484362 / Implanted: Qty: 1 on 03/15/2017 by Murphy Greer MD at [facility] [place] [id number] / [id number] Patella PATELLA Right: Biomet 02/19/2021 [id number] / Implanted: Qty: 1 on 04/08/2016 by Noel Sarmiento MD at [facility] K[place] [id number] / [id number] Tibial Plate PLATE Right: Biomet 09/05/2024 389666 / Implanted: Qty: 1 on 04/08/2016 by Noel Sarmiento MD at [facility] Knee [id number] / [id number] Splined Knee Stem V2 Stem Right: Biomet 02/05/2023 341837 / Implanted: Qty: 1 on 03/15/2017 by Murphy Greer MD at [facility] Knee [id number] / [id number] Splined Knee Stem V2 Stem Right: Biomet 05/07/2023 159511 / Implanted: Qty: 1 on 03/15/2017 by Murphy Greer MD at [facility] [place] [id number] / [id number] documented as of this encounter Results Not on filedocumented in this encounter Visit Diagnoses Diagnosis Essential hypertension Unspecified essential hypertension Hypothyroidism, unspecified type Idiopathic gout, unspecified chronicity, unspecified site documented in this encounter Insurance Payer Benefit Plan / Subscriber ID Effective Phone Address Type Group Dates [place] [facility] [id number] 2019-Prese Medicare Adv HEALTHCARE - MEDICARE [facility] MANAGED MEDICARE ADVANTAGE documented as of this encounter
--- NOTE | 2019-05-05 11:06 | EDPHYS ---
Physician Documentation [facility] Name: Kevin Virgen Age: 58 yrs Sex: Male : 1960 Arrival Date: 05/05/2019 Time: 10:32 Bed 16 Private MD: ED Physician Mohsen Sands HPI: 05/05 10:38 This 58 yrs old Male presents to ER via EMS with complaints of Fall Injury. cp 10:38 Details of fall: The patient fell from an upright position, while running, and struck a cp concrete surface. Onset: The symptoms/episode began/occurred just prior to arrival. Associated injuries: The patient sustained injury to the head, laceration, of the chin. Severity of symptoms: in the emergency department the symptoms are unchanged, despite EMS interventions. Historical: - Allergies: 10:35 NKDA; ss - Home Meds: 10:35 aspirin 81 mg Oral chew 1 tab once daily [Active]; ss - PMHx: 10:35 Gout; Hypothyroidism; Chronic pain; ss - PSHx: 10:35 Knee surgery; ss - Immunization history:: Adult Immunizations up to date. - Social history:: Smoking status: Patient denies any tobacco usage or history of. ROS: 10:40 Eyes: Negative for injury, pain, redness, and discharge. cp 10:40 Constitutional: Negative for fever, poor PO intake. 10:40 ENT: Negative for drainage from ear(s), ear pain, dental pain, difficulty swallowing, difficulty handling secretions. 10:40 Cardiovascular: Negative for chest pain, palpitations. 10:40 Respiratory: Negative for cough, shortness of breath, wheezing. 10:40 Abdomen/GI: Negative for abdominal pain, nausea, vomiting, and diarrhea. 10:40 Back: Negative for pain at rest, pain with movement. 10:40 Skin: Positive for laceration(s), of the chin. 10:40 Neuro: Negative for altered mental status, dizziness, headache, loss of consciousness, numbness, weakness. 10:40 All other systems are negative. Exam: 10:41 Constitutional: The patient appears in no acute distress, alert, awake, cp non-diaphoretic, non-toxic, well developed, well nourished, obese. 10:41 Head/face: Noted is a laceration(s), of the chin, Sinus tenderness, is not appreciated. 10:41 Eyes: Periorbital structures: appear normal, Pupils: equal, round, and reactive to light and accomodation, Extraocular movements: intact throughout, Conjunctiva: normal, no exudate, no injection, Lids and lashes: appear normal, bilaterally. 10:41 ENT: External ear(s): are unremarkable, Ear canal(s): are normal, clear, TM's: dullness, bilaterally, Nose: is normal, Mouth: Lips: moist, Oral mucosa: pink and intact, moist, Posterior pharynx: Airway: no evidence of obstruction, patent. 10:41 Neck: C-spine: vertebral tenderness, is not appreciated, crepitus, is not appreciated, ROM/movement: pain, is not appreciated, limited range of motion, is not appreciated, nuchal rigidity, is not appreciated. 10:41 Chest/axilla: Inspection: normal, Palpation: crepitus, is not appreciated, tenderness, is not appreciated. 10:41 Cardiovascular: Rate: normal, Rhythm: regular. 10:41 Respiratory: the patient does not display signs of respiratory distress, Respirations: normal, no use of accessory muscles, no retractions, labored breathing, is not present, Breath sounds: are clear throughout, no decreased breath sounds, no stridor, no wheezing. 10:41 Abdomen/GI: Inspection: abdomen appears normal, Bowel sounds: active, all quadrants, Palpation: abdomen is soft and non-tender, in all quadrants. 10:41 Back: pain, is absent. 10:41 Musculoskeletal/extremity: Exam is negative for decreased range of motion, deformity, injury. 10:41 Neuro: Orientation: to person, place \T\ time. Mentation: is normal, Motor: moves all fours, strength is normal, Sensation: is normal. Vital Signs: 10:32 BP 150 / 96; Pulse 96; Resp 18; Temp 97.6(TE); Pulse Ox 96% on R/A; Weight 122.47 kg; ss Height 5 ft. 11 in. (180.34 cm); Pain 0/10; 10:32 Body Mass Index 37.66 (122.47 kg, 180.34 cm) MDM: 10:32 Patient medically screened. [facility] 11:05 Data reviewed: vital signs, nurses notes. cp 11:05 Differential diagnosis: closed head injury, contusion, fracture, laceration, multiple cp trauma. Refusal of service: The patient/guardian displays adequate decision making capability and despite a detailed discussion of alternatives, benefits, risks, and consequences refuses: CT Scan, suturing of laceration. Administered Medications: 10:38 CANCELLED (Physician Discretion): Tetanus-Diphtheria Toxoid Adult 0.5 ml IM once cp Disposition: 11:30 Chart complete. cp 12:33 Co-signature as Attending Physician, Mohsen Sands MD I agree with the assessment and [facility] plan of care. Disposition: 05/05/19 11:05 Discharged to Home. Impression: Laceration without foreign body of other part of head - chin, Fall on same level from slipping, tripping and stumbling. - Condition is Stable. - Discharge Instructions: Head Injury, Adult, Facial Laceration. - Medication Reconciliation Form, Thank You Letter, Antibiotic Education, Prescription Opioid Use form. - Follow up: Private Physician; When: 1 - 2 days; Reason: Worsening of condition. - Problem is new. - Symptoms have improved. Signatures: Mohsen Sands MD MD cha Smirch, Shelby, RN RN ss Mohsen Neri PA PA cp Corrections: (The following items were deleted from the chart) 10:38 10:38 Tetanus-Diphtheria Toxoid Adult 0.5 ml IM once ordered. cp cp 11:06 11:05 05/05/2019 11:05 Discharged to Home. Impression: Laceration without foreign body cp of other part of head - chin. Condition is Stable. Forms are Medication Reconciliation Form, Thank You Letter, Antibiotic Education, Prescription Opioid Use. Follow up: Private Physician; When: 1 - 2 days; Reason: Worsening of condition. Problem is new. Symptoms have improved. cp 11:28 11:06 05/05/2019 11:05 Discharged to Home. Impression: Laceration without foreign body ss of other part of head - chin; Fall on same level from slipping, tripping and stumbling. Condition is Stable. Discharge Instructions: Head Injury, Adult, Facial Laceration. Forms are Medication Reconciliation Form, Thank You Letter, Antibiotic Education, Prescription Opioid Use. Follow up: Private Physician; When: 1 - 2 days; Reason: Worsening of condition. Problem is new. Symptoms have improved. cp
--- NOTE | 2019-05-05 11:06 | ER ---
Nurse's Notes [facility] Name: Kevin Virgen Age: 58 yrs Sex: Male : 1960 Arrival Date: 05/05/2019 Time: 10:32 Bed 16 Private MD: Diagnosis: Laceration without foreign body of other part of head-chin;Fall on same level from slipping, tripping and stumbling Presentation: 05/05 10:32 Chief complaint: Patient states: Tripped over a curb 20 minutes ago falling from a ss standing position, sustaining a 1 cm laceration to chin and superficial abrasion to R knee. Denies pain. Pt reports he last drank ETOH last night (6 pack) and has taken 3 Tyelnol #4 tablets for his chronic pain today. Coronavirus screen: The patient has NOT traveled to [place] in the past 14 days. Proceed with normal triage procedures. Ebola Screen: Patient denies exposure to infectious person. Patient denies travel to an Ebola-affected area in the 21 days before illness onset. Initial Sepsis Screen: Does the patient meet any 2 criteria? No. Patient's initial sepsis screen is negative. Does the patient have a suspected source of infection? No. Patient's initial sepsis screen is negative. Risk Assessment: Do you want to hurt yourself or someone else? Patient reports no desire to harm self or others. 10:32 Method Of Arrival: EMS: [facility] 10:32 Acuity: SANJUANA 4 ss Historical: - Allergies: 10:35 NKDA; ss - Home Meds: 10:35 aspirin 81 mg Oral chew 1 tab once daily [Active]; ss - PMHx: 10:35 Gout; Hypothyroidism; Chronic pain; ss - PSHx: 10:35 Knee surgery; ss - Immunization history:: Adult Immunizations up to date. - Social history:: Smoking status: Patient denies any tobacco usage or history of. Screenin:30 Abuse screen: Denies threats or abuse. Denies injuries from another. Nutritional ss screening: No deficits noted. Tuberculosis screening: Never had TB. Fall Risk None identified. Assessment: 10:32 General: Appears in no apparent distress. comfortable, Behavior is calm, cooperative, ss Denies fever, feeling ill, fatigue, chills. Pain: Denies pain. Neuro: Level of Consciousness is awake, alert, obeys commands, Oriented to person, place, time, situation, Speech is normal. Cardiovascular: Pulses are palpable in right radial artery and left radial artery. Respiratory: Airway is patent Respiratory effort is even, unlabored, Respiratory pattern is regular, symmetrical. GI: Patient currently denies abdominal pain, diarrhea, nausea, vomiting. : No signs and/or symptoms were reported regarding the genitourinary system. EENT: Nares are clear Oral mucosa is moist. Derm: Skin is pink, warm \\T\\ dry. normal. Musculoskeletal: Circulation, motion, and sensation intact. Range of motion: intact in all extremities. Injury Description: Abrasion sustained to right knee Laceration sustained to chin is 0.5 to 2.5 cm long, was sustained 30-60 minutes ago. no active bleeding noted at this time. 11:00 Reassessment: Pt is refusing treatment at this time. Is laughing with ED staff. ss 11:20 Reassessment: Pt refuses any further wound care and or laceration repair. Pt states, ss "I'm fine. I just want to go home. I'm just big, old and clumsy." Friend with patient is attempting to talk patient into staying to have treatments in the ER, but patient insist on leaving. Vital Signs: 10:32 BP 150 / 96; Pulse 96; Resp 18; Temp 97.6(TE); Pulse Ox 96% on R/A; Weight 122.47 kg; ss Height 5 ft. 11 in. (180.34 cm); Pain 0/10; 10:32 Body Mass Index 37.66 (122.47 kg, 180.34 cm) ED Course: 10:30 Patient has correct armband on for positive identification. Bed in low position. Call ss light in reach. 10:32 Patient arrived in ED. ss 10:32 Mohsen Sands MD is Attending Physician. dione 10:33 [facility] Neri PA [facility]. cp 10:34 Triage completed. ss 10:35 Arm band placed on right wrist. ss 11:27 No provider procedures requiring assistance completed. Patient did not have IV access ss during this emergency room visit. Administered Medications: 10:38 CANCELLED (Physician Discretion): Tetanus-Diphtheria Toxoid Adult 0.5 ml IM once cp Outcome: 11:05 Discharge ordered by . cp 11:27 Discharged to home ambulatory, with friend. 11:27 Condition: Pt refused laceration repair/ treatment 11:27 Discharge instructions given to patient, Instructed on discharge instructions, follow up and referral plans. wound care, Demonstrated understanding of instructions, follow-up care, wound care. 11:28 Patient left the ED. ss Signatures: Mohsen Sands MD MD cha Calderon, Audri, RN RN aa5 Nila Peres RN RN oMhsen Neri, PA PA cp Corrections: (The following items were deleted from the chart) 14:06 10:34 Duyen Crews, RN is Primary Nurse. aa5 aa5
[2019-05-05 12:12] VITALS: BP 150/96; TEMP 97.6; O2SAT 96
== END 2019-05-05 11:28 | disposition home or self-care (01) ==
LOC: ER 10:29
DX: S01.81XA Laceration without foreign body of other part of head, initial encounter (principal); W01.198A Fall on same level from slipping, tripping and stumbling with subsequent striking against other object, initial encounter; Y93.89 Activity, other specified; Y92.9 Unspecified place or not applicable; Z23 Encounter for immunization
CPT/HCPCS: 99283

== ENCOUNTER 2023-09-14 15:41 | Emergency (ER) | payer MEDICAID, MEDICARE ==
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
--- NOTE | 2023-09-14 21:05 | ER ---
Nurse's Notes [facility] Name: Kevin Virgen Age: 62 yrs Sex: Male : 1960 Arrival Date: 09/14/2023 Time: 15:41 Bed 23 Private MD: Diagnosis: Heat exhaustion, unspecified Presentation: 09/13 16:00 Chief complaint: Patient states: he was in his house and got hot. patient reports ap3 having a "few beers" today to cool off. patient also reports dizziness. Coronavirus screen: At this time, the client does not indicate any symptoms associated with coronavirus-19. Ebola Screen: No symptoms or risks identified at this time. Initial Sepsis Screen: Does the patient meet any 2 criteria? HR > 90 bpm. Does the patient have a suspected source of infection? No. Patient's initial sepsis screen is negative. Risk Assessment: Do you want to hurt yourself or someone else? Patient reports no desire to harm self or others. Onset of symptoms was September 14, 2023. 16:00 Method Of Arrival: EMS: [facility] ap3 16:00 Acuity: SANJUANA 3 ap3 Triage Assessment: 17:00 General: Appears in no apparent distress. comfortable, Behavior is calm, cooperative. cm10 Pain: Denies pain. Neuro: No deficits noted. Level of Consciousness is awake, alert, obeys commands, Oriented to person, place, time, situation, Appropriate for age. Historical: - Allergies: 18:22 No Allergy Information Available; cm10 - PMHx: 18:22 Chronic pain; Gout; Hypothyroidism; cm10 - Immunization history:: Adult Immunizations up to date. - Infectious Disease History:: Denies. - Social history:: Smoking status: unknown. Screenin:00 [facility] ED Fall Risk Assessment (Adult) History of falling in the last 3 months, cm10 including since admission No falls in past 3 months (0 pts) Confusion or Disorientation No (0 pts) Intoxicated or Sedated No (0 pts) Impaired Gait No (0 pts) Mobility Assist Device Used No (0 pt) Altered Elimination No (0 pt) Score/Fall Risk Level 0 - 2 = Low Risk Oriented to surroundings, Maintained a safe environment, Hourly rounding (assess needs \\T\\ fall precautionary measures) done. Abuse screen: Denies threats or abuse. Denies injuries from another. Nutritional screening: No deficits noted. Tuberculosis screening: No symptoms or risk factors identified. Assessment: 17:00 General: Pt states that he would like to leave. Provider aware and patient discharged.. cm10 Vital Signs: 16:00 BP 109 / 77; Pulse 95; Resp 18; Temp 98.2; Pulse Ox 95% on R/A; Weight 131.54 kg; ap3 Height 5 ft. 11 in. ; 16:00 Body Mass Index 40.45 (131.54 kg, 180.34 cm) ap3 ED Course: 15:59 Patient arrived in ED. ap3 16:03 Triage completed. ap3 17:00 Arm band placed on Patient placed in an exam room, on a stretcher. cm10 17:00 Patient has correct armband on for positive identification. Provided Education on: cm10 Follow up instructions. 17:00 No provider procedures requiring assistance completed. IV discontinued, intact, cm10 bleeding controlled, No redness/swelling at site. Pressure dressing applied. 18:10 Aron Becerra DO is Attending Physician. ms3 Administered Medications: No medications were administered Medication: 17:00 VIS not applicable for this client. cm10 Outcome: 17:00 Discharged to home ambulatory, cm10 17:00 Condition: good 17:00 Discharge instructions given to patient, Instructed on discharge instructions, follow up and referral plans. Demonstrated understanding of instructions, follow-up care, 18:11 Discharge ordered by . ms3 18:26 Patient left the ED. cm10 Signatures: Meagan Keane RN RN ap3 Aron Becerra DO DO ms3 Mayda Martinez RN RN cm10
[2023-09-14 22:15] VITALS: BP 109/77; TEMP 98.2; O2SAT 95
== END 2023-09-14 18:26 | disposition home or self-care (01) ==
LOC: ER 15:41
DX: T67.5XXA Heat exhaustion, unspecified, initial encounter (principal); E03.9 Hypothyroidism, unspecified; G89.29 Other chronic pain; M10.9 Gout, unspecified; X30.XXXA Exposure to excessive natural heat, initial encounter; Y93.89 Activity, other specified; Y92.019 Unspecified place in single-family (private) house as the place of occurrence of the external cause
CPT/HCPCS: 99283

== ENCOUNTER 2024-02-02 10:37 | Emergency (ER) | payer MEDICAID ==
[2024-02-02] MEDS ORDERED: FOLIC ACID 5 MG/ML VIAL ONE (11:07)
[2024-02-02] MEDS ORDERED: THIAMINE 200 MG/2 ML INJ ONE (11:07)
[2024-02-02] MEDS ORDERED: FAMOTIDINE 20 MG/2 ML VIAL IV ONE (11:07)
[2024-02-02] MEDS ORDERED: NA CHLORIDE 0.9% 1,000 ML ONE (11:08)
[2024-02-02 11:09] LABS: Absolute Basophils 0.1 K/uL (0-0.5); Absolute Lymphocytes (CBC) 1.6 K/uL (0.7-4.9); Absolute Monocytes 0.9 K/uL (0.1-1.3); Absolute Neutrophil 5.6 K/uL (1.8-8.0); Basophils % 0.8 % (0-1.3); Eosinophils % 0.2 % (0-4.4); Hematocrit 42.2 % (39.6-49.0); Hemoglobin 14.2 g/dL (13.6-17.9); Lymphocytes % 19.5 % (15.3-44.8); MCH 31.2 pg (27.0-35.0); MCHC 33.7 g/dL (32.0-36.0); MCV 92.6 fL (80-100); MPV 8.9 fL (7.6-11.3); Monocytes % 10.9 % (3.3-12.3); Neutrophils % 68.6 % (41.7-73.7); Platelets 218 thou/uL (152-406); RBC Red Blood Cell Count 4.55 M/uL (4.33-5.43)
[2024-02-02 11:15] LABS: PT Prothrombin Time 12.5 SECONDS (9.4-12.5); PTT, Activated Partial Thromb 28.1 SECONDS (24.3-36.9); Protime INR 1.12
[2024-02-02] MEDS ORDERED: NA CHLORIDE 0.9% 1,000 ML with FOLIC ACID 1 MG, THIAMINE HCL 100 MG, MULTIVITAMINS INJ ... IV SCH (11:15)
--- NOTE | 2024-02-02 11:25 | RAD REPORT ---
EXAM: CT Head Brain Wo Cont HISTORY: Seizure;Trauma COMPARISON: 09/14/2012 TECHNIQUE: Multiple contiguous axial images were obtained for a CT of the brain without contrast. Sag ittal and coronal reformats were performed. One or more of the following dose reduction techniques were used: Automated exposure control, adjus tment of the mA and kV according to patient size, and iterative reconstruction. Unless otherwise specified, incidental findings do not require dedicated imaging follow-up. FINDINGS: No evidence of hydrocephalus, intracranial hemorrhage, or extra-axial fluid collection. Mild brain atrophy with mild periventricular and deep white matter chronic microvascular ischemic ch anges present. The calvarium is intact. The visualized paranasal sinuses and mastoid air cells are essentially clear . IMPRESSION: No evidence of acute intracranial abnormality.
[2024-02-02 11:29] LABS: ALT/SGPT 38 U/L (16-61); AST/SGOT 28 U/L (15-37); Albumin 3.3 g/dL (3.4-5.0); Albumin/Globulin Ratio 0.9 (1.1-1.8); Alkaline Phosphatase 82 U/L (45-117); Anion Gap 12.4 mEq/L (5.0-15.0); BUN Blood Urea Nitrogen 18 mg/dL (7-18); Bicarbonate 26 mEq/L (21-32); Bilirubin Direct 0.2 mg/dL (0-0.2); Bilirubin Indirect, Calculated 0.5 mg/dL (0.2-0.8); Bilirubin Total 0.7 mg/dL (0.2-1.0); Globulin 3.7 g/dL (2.3-3.5); Glomerular Filtration Rate 74 ml/min (=/>90); Glucose Level 116 mg/dL (74-106); Lipase 22 U/L (13-75); Potassium 3.4 mEq/L (3.5-5.1); Sodium Level 135 mEq/L (136-145)
[2024-02-02] MEDS ORDERED: LORazepam 2 MG/ML VIAL ONE (11:53)
--- NOTE | 2024-02-02 12:12 | RAD REPORT ---
EXAMINATION: ONE VIEW CHEST XR CLINICAL INDICATION: Male, 63 years old.,COUGH TECHNIQUE: Frontal chest projection is submitted. Examination is limited by patient positioning and t echnique. COMPARISON: 09/14/2012 FINDINGS: The lungs are somewhat hypoinflated and clear. No pneumothorax or sizable effusion. The heart is nor mal in size. Mediastinal contours are unremarkable. IMPRESSION: No acute intrathoracic abnormalities.
[2024-02-02] MEDS ORDERED: METOPROLOL TAR 50 MG TAB ONE (13:03)
[2024-02-02] MEDS ORDERED: POTASSIUM 25 MEQ EFFERV TAB ONE (13:03)
[2024-02-02] MEDS ORDERED: METOPROLOL TARTRATE 5 MG/5 ML INJ IV ONE (13:03)
[2024-02-02] MEDS ORDERED: chlordiazePOXIDE HCl 25 MG CAP ONE (13:04)
--- NOTE | 2024-02-02 13:12 | EDPHYS ---
Physician Documentation [facility] Name: Kevin Virgen Age: 63 yrs Sex: Male : 1960 Arrival Date: 02/02/2024 Time: 10:37 Bed 8 Private MD: ED Physician Mohsen Sands HPI: 02/01 10:53 This 63 yrs old Male presents to ER via EMS with complaints of Alcohol dione Withdrawal. 10:53 etoh abuse. The patient presents with decreased mental status. Possible causes: dione alcohol, has a history of chronic alcohol abuse. Associated signs and symptoms: Pertinent positives: agitation, dizziness. Onset: The symptoms/episode began/occurred 1 day(s) ago. Current symptoms: In the emergency department the patient's symptoms are unchanged from the initial presentation. Patient's baseline: Neuro: alert and fully oriented. Severity of symptoms: At their worst the symptoms were. The patient has experienced similar episodes in the past, multiple times. 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 - Infectious Disease History:: Denies. - Family history:: not pertinent. - Social history:: Smoking status: unknown. ROS: 10:53 Constitutional: Negative for fever, chills, and weight loss, Eyes: Negative for injury, dione pain, redness, and discharge, ENT: Negative for injury, pain, and discharge, Neck: Negative for injury, pain, and swelling, Respiratory: Negative for shortness of breath, cough, wheezing, and pleuritic chest pain, Abdomen/GI: Negative for abdominal pain, nausea, vomiting, diarrhea, and constipation, Back: Negative for injury and pain, : Negative for injury, bleeding, discharge, and swelling, MS/Extremity: Negative for injury and deformity, Skin: Negative for injury, rash, and discoloration, Psych: Negative for depression, anxiety, suicide ideation, homicidal ideation, and hallucinations, Allergy/Immunology: Negative for hives, rash, and allergies, Endocrine: Negative for neck swelling, polydipsia, polyuria, polyphagia, and marked weight changes, Hematologic/Lymphatic: Negative for swollen nodes, abnormal bleeding, and unusual bruising, 10:53 Cardiovascular: Positive for palpitations, 10:53 Neuro: Positive for 10:53 Neuro: Positive for headache, weakness, dione Exam: 10:53 Constitutional: This is a well developed, well nourished patient who is awake, alert, dione and in no acute distress. Head/Face: Normocephalic, atraumatic. Eyes: Pupils equal round and reactive to light, extra-ocular motions intact. Lids and lashes normal. Conjunctiva and sclera are non-icteric and not injected. Cornea within normal limits. Periorbital areas with no swelling, redness, or edema. ENT: Nares patent. No nasal discharge, no septal abnormalities noted. Tympanic membranes are normal and external auditory canals are clear. Oropharynx with no redness, swelling, or masses, exudates, or evidence of obstruction, uvula midline. Mucous membranes moist. Neck: Trachea midline, no thyromegaly or masses palpated, and no cervical lymphadenopathy. Supple, full range of motion without nuchal rigidity, or vertebral point tenderness. No Meningismus. Chest/axilla: Normal chest wall appearance and motion. Nontender with no deformity. No lesions are appreciated. Respiratory: Lungs have equal breath sounds bilaterally, clear to auscultation and percussion. No rales, rhonchi or wheezes noted. No increased work of breathing, no retractions or nasal flaring. Abdomen/GI: Soft, non-tender, with normal bowel sounds. No distension or tympany. No guarding or rebound. No evidence of tenderness throughout. Back: No spinal tenderness. No costovertebral tenderness. Full range of motion. Male : Normal genitalia with no discharge or lesions. Skin: Warm, dry with normal turgor. Normal color with no rashes, no lesions, and no evidence of cellulitis. MS/ Extremity: Pulses equal, no cyanosis. Neurovascular intact. Full, normal range of motion. Psych: Awake, alert, with orientation to person, place and time. Behavior, mood, and affect are within normal limits. 10:53 Cardiovascular: Rate: tachycardic, actual rate is 105 bpm, Rhythm: regular, Pulses: Pulses are 4+ in bilateral radial, brachial, femoral, popliteal, posterior tibial and and dorsalis pedis arteries.. Edema: is not appreciated, JVD: is not appreciated, 10:53 Respiratory: Exam negative for 10:53 Musculoskeletal/extremity: DVT Exam: No signs of deep vein thrombosis. no pain, no swelling, no tenderness, negative Homans' sign noted on exam, no appreciated bluish discoloration, no erythema, no increased warmth, 12:32 ECG was reviewed by the Attending Physician. [facility] Vital Signs: 10:51 BP 146 / 100; Pulse 105; Resp 18; Temp 97.7; Pulse Ox 96% on R/A; Weight 136.08 kg; ll1 Height 5 ft. 11 in. ; Pain 3/10; 12:00 BP 143 / 108; Pulse 108; Resp 16; Pulse Ox 93% on R/A; cm10 13:00 BP 167 / 105; Pulse 111; Resp 18; Pulse Ox 95% on R/A; cm10 13:19 BP 145 / 101; Pulse 87; Resp 19; Pulse Ox 100% on R/A; cm10 10:51 Body Mass Index 41.84 (136.08 kg, 180.34 cm) ll1 10:51 Pain Scale: Adult ll1 MDM: 10:43 Medical Screening Exam initiated dione 10:56 Differential Diagnosis altered mental status, flu. Data reviewed: vital signs, nurses [facility] notes, lab test result(s), CBC, electrolytes, hepatic panel, urinalysis, urine drug screen, EKG, radiologic studies. Consideration of Admission/Observation Escalation of care including admission/observation considered. I considered the following discharge prescriptions or medication management in the emergency department Medications were administered in the Emergency Department. See MAR. Independent interpretation of the following test(s) in the Emergency Department EKG: See my EKG interpretation above. Test considered but Not performed:. Care significantly affected by the following chronic conditions: Hypertension, Obesity, chronic pain, alcoholic. 02/01 10:46 Order name: Acetaminophen; Complete Time: : [facility] 02/01 10:46 Order name: Basic Metabolic Panel; Complete Time: : [facility] 02/01 10:46 Order name: CBC with Diff; Complete Time: : [facility] 02/01 10:46 Order name: ETOH Level; Complete Time: 11: [facility] 02/01 10:46 Order name: Hepatic Function; Complete Time: 11: [facility] 02/01 10:46 Order name: PT-INR; Complete Time: 11: [facility] 02/01 10:46 Order name: Ptt, Activated; Complete Time: 11:[address] [facility] 02/01 10:46 Order name: Salicylate; Complete Time: 11:[address] [facility] 02/01 10:46 Order name: Troponin High Sensitivity; Complete Time: 11:[address] [facility] 02/01 10:46 Order name: Lipase; Complete Time: 11:[address] [facility] 02/01 10:52 Order name: CPK; Complete Time: 11:[address] [facility] 02/01 10:46 Order name: Chest Single View XRAY; Complete Time: 12:[address] [facility] 02/01 10:52 Order name: CT Head Brain wo Cont; Complete Time: 11: [facility] 02/01 10:46 Order name: EKG - Nurse/Tech; Complete Time: 11: [facility] 02/01 10:46 Order name: IV Saline Lock; Complete Time: 11: [facility] 02/01 10:46 Order name: Labs collected and sent; Complete Time: 11: [facility] 02/01 10:46 Order name: Suicide Screening ([place]); Complete Time: 11: [facility] 02/01 10:46 Order name: Seizure Precautions; Complete Time: 11:[address] [facility] 02/01 12:09 Order name: PO challenge; Complete Time: 13:[address] [facility] EC:32 Rate is 109 beats/min. Rhythm is regular. QRS [place] is Normal. GA interval is normal. [facility] QRS interval is normal. QT interval is normal. No Q waves. T waves are Normal. No ST changes noted. Clinical impression: Sinus tachycardia and No evidence of ischemia. Interpreted by me. Reviewed by me. Administered Medications: 11:24 Drug: Thiamine IV 100 mg IV at per protocol once Route: IV; Rate: per protocol; Site: [address]; 13:54 Follow up: Response: No adverse reaction; IV Status: Completed infusion cm10 11:24 Drug: foLIC Acid IVPB 1 mg IVPB once Route: IVPB; Site: right antecubital; [facility] 13:57 Follow up: Response: No adverse reaction; IV Status: Completed infusion cm10 11:24 Drug: NS 0.9% IV 1000 ml IV at 1000 ml once; to be given as a bolus over 60 minutes [facility] Route: IV; Rate: 1000 ml; Site: right antecubital; 13:55 Follow up: Response: No adverse reaction; IV Status: Completed infusion; IV Intake: cm10 1000ml 11:24 Drug: Famotidine IVP 20 mg IVP once; dilute with 10 mL 0.9% NaCl; give over 2 minutes kc6 Route: IVP; Site: right antecubital; 13:54 Follow up: Response: No adverse reaction cm10 11:55 Drug: Banana Bag - (Multivitamin IV 1 amp, NS 0.9% IV 1000 ml, Thiamine IV 100 mg, kc6 foLIC Acid IVPB 1 mg) IV at bolus once Route: IV; Rate: bolus; Site: right antecubital; 13:54 Follow up: Response: No adverse reaction; IV Status: Completed infusion; IV Intake: cm10 700ml 13:14 Drug: Potassium PO Effervescent Tablet 25 mEq PO once; dissolve in 4 ounces of water or cm10 juice Route: PO; 13:54 Follow up: Response: No adverse reaction cm10 13:14 Drug: Metoprolol IVP 5 mg IVP once; Hold for SBP <100 or HR <60. Route: IVP; Site: cm10 right antecubital; 13:54 Follow up: Response: No adverse reaction cm10 13:14 Drug: Metoprolol PO 50 mg PO once Route: PO; cm10 13:54 Follow up: Response: No adverse reaction cm10 13:14 Drug: chlordiazePOXIDE PO 50 mg PO once Route: PO; cm10 13:54 Follow up: Response: No adverse reaction cm10 13:57 Not Given (Physician Discretion): ativan2 mg IVP once cm10 Disposition Summary: 02/02/24 13:11 Discharge Ordered Notes: Location: Home dione Problem: new dione Symptoms: have improved dione Condition: Fair dione Diagnosis - Alcohol abuse dione - Alcohol dependence with withdrawal, uncomplicated dione - Obesity, unspecified dione - Hypokalemia dione - Essential (primary) hypertension dione Followup: dione - With: Private Physician - When: 2 - 3 days - Reason: Recheck today's complaints, Continuance of care, Re-evaluation by your physician Followup: dione - With: Sherif Rodriguez MD - When: 2 - 3 days - Reason: Recheck today's complaints, Re-evaluation by your physician Discharge Instructions: - Discharge Summary Sheet dione - Finding Treatment for Addiction dione - Alcohol Withdrawal Syndrome dione - Alcohol Use Disorder dione - Potassium Content of Foods dione - Hypertension, Adult dione - Obesity, Adult dione - Hypertension, Adult, [id number] dione - Alcohol Withdrawal Syndrome, Pwet-hy-Kgbm dione - Hypokalemia dione - Obesity, Adult, [id number] dione - Alcohol Abuse and Dependence Information, Adult [facility] Forms: - Medication Reconciliation Form dione - Antibiotic Education dione - Prescription Opioid Use dione - Patient Portal Instructions dione - Leadership Thank You Letter [facility] Prescriptions: - chlordiazepoxide HCl 25 mg Oral capsule - take 1 capsule ORAL route 4 times per day; 20 capsule; Refills: 0, Product dione Selection Permitted - Toprol XL 50 mg Oral Tablet - take 1 tablet ORAL route once daily; 20 tablet; Refills: 0, Product Selection dione Permitted - Potassium Chloride 20 meq Oral Packet - take 1 packet ORAL route once daily 1 packet in 6 (six) ounces of water or dione juice; Take after meal; 30 packet; Refills: 0, Product Selection Permitted Signatures: Dispatcher [employer] EDMS Mohsen Sands MD MD cha Lewis, Lynsay RN RN ll1 Lesly Bob RN RN kc6 Mayda Martinez RN RN cm10 Corrections: (The following items were deleted from the chart) 10:47 10:47 ACETAMINOPHEN+C.LAB.BRZ ordered. EDMS EDMS 10:47 10:47 BASIC METABOLIC PANEL+C.LAB.BRZ ordered. EDMS EDMS 10:47 10:47 CBC+H.LAB.BRZ ordered. EDMS EDMS 10:47 10:47 ETHANOL+C.LAB.BRZ ordered. EDMS EDMS 10:47 10:47 HEPATIC FUNCTION+C.LAB.BRZ ordered. EDMS EDMS 10:47 10:47 PROTIME (+INR)+COAG.LAB.BRZ ordered. EDMS EDMS 10:47 10:47 PTT, ACTIVATED+COAG.LAB.BRZ ordered. EDMS EDMS 10:47 10:47 SALICYLATE+C.LAB.BRZ ordered. EDMS EDMS 10:47 10:47 Urinalysis+U.LAB.BRZ ordered. EDMS EDMS 10:47 10:47 URINE DRUG SCREEN+UC.LAB.BRZ ordered. EDMS EDMS 10:47 10:47 Troponin High Sensitivity+C.LAB.BRZ ordered. EDMS EDMS 10:47 10:47 LIPASE+C.LAB.BRZ ordered. EDMS EDMS 10:47 10:47 Chest Single View+RAD.RAD.BRZ ordered. EDMS EDMS
--- NOTE | 2024-02-02 13:12 | ER ---
Nurse's Notes [facility] Name: Kevin Virgen Age: 63 yrs Sex: Male : 1960 Arrival Date: 02/02/2024 Time: 10:37 Bed 8 Private MD: Diagnosis: Alcohol abuse;Alcohol dependence with withdrawal, uncomplicated;Obesity, unspecified;Hypokalemia;Essential (primary) hypertension Presentation: 02/01 10:43 Chief complaint: Patient states: ETOH withdrawal, in custody [employer]. Last ETOH drink last ll1 night at 7 PM. Coronavirus screen: Client denies travel out of the [place] in the last 14 days. At this time, the client does not indicate any symptoms associated with coronavirus-19. Ebola Screen: Patient denies travel to an Ebola-affected area in the 21 days before illness onset. Initial Sepsis Screen: Does the patient meet any 2 criteria? No. Patient's initial sepsis screen is negative. Does the patient have a suspected source of infection? No. Patient's initial sepsis screen is negative. Risk Assessment: Do you want to hurt yourself or someone else? Patient reports no desire to harm self or others. Onset of symptoms. Onset of symptoms was February 02, 2024. 10:43 Method Of Arrival: EMS: [facility] ll1 10:43 Acuity: [place] 3 ll1 11:03 Care prior to arrival: IV initiated. 20 GA, in the right forearm. kc6 Triage Assessment: 10:43 General: Appears uncomfortable, Behavior is calm, cooperative, appropriate for age. ll1 General: Reports fatigue for. Pain: Complains of pain in abdomen Pain currently is 3 out of 10 on a pain scale. Quality of pain is described as aching. Neuro: Reports weakness shakes. GI: Reports upper abdominal pain. 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 - Infectious Disease History:: Denies. - Family history:: not pertinent. - Social history:: Smoking status: unknown. Screenin:03 [facility] ED Fall Risk Assessment (Adult) History of falling in the last 3 months, kc6 including since admission No falls in past 3 months (0 pts) Confusion or Disorientation No (0 pts) Intoxicated or Sedated Yes (3 pts) Impaired Gait No (0 pts) Mobility Assist Device Used No (0 pt) Altered Elimination No (0 pt) Score/Fall Risk Level 3 or more points = High Risk Oriented to surroundings, Maintained a safe environment, Educated pt \\T\\ family on fall prevention, incl call for assistance when getting out of bed. Abuse screen: Denies threats or abuse. Denies injuries from another. Nutritional screening: No deficits noted. Tuberculosis screening: No symptoms or risk factors identified. Assessment: 11:18 Reassessment: this nurse contacted the patients per patient request. Gail ap3 [phone]. 11:19 General: Appears in no apparent distress. comfortable, Behavior is calm, cooperative. ap3 Neuro: Level of Consciousness is awake, alert, obeys commands, Oriented to person, place, time, situation. Respiratory: Airway is patent Respiratory effort is even, unlabored, Respiratory pattern is regular, symmetrical. 13:23 General: Pt awaiting completion of fluids for D/C.. cm10 13:55 Reassessment: Patient appears in no apparent distress at this time. No changes from cm10 previously documented assessment. Patient and/or family updated on plan of care and expected duration. Pain level reassessed. Patient is alert, oriented x 3, equal unlabored respirations, skin warm/dry/pink. Patient states feeling better. Patient states symptoms have improved. Psych: 11:04 [place] Suicide Severity Screening: In the past month, have you wished you were kc6 or wished you could go to sleep and not wake up? Patient responds "No." "In the past month, have you actually had any thoughts of killing yourself?" Patient responds "no." "In your lifetime, have you ever done anything, started to do anything, or prepared to do anything to end your life?" Patient responds "no.". Subjective: Delusions are denied, Hallucinations are denied. Objective: Patient is cooperative, Speech is normal, Affect is appropriate. Interventions: Searched person for dangerous items. Urine collected and sent for urine drug test. Safety Checks: Personal items have not been removed. Door is open. No visitors are present at this time. [place] [employer] at bedside. Patient uses. Vital Signs: 10:51 BP 146 / 100; Pulse 105; Resp 18; Temp 97.7; Pulse Ox 96% on R/A; Weight 136.08 kg; ll1 Height 5 ft. 11 in. ; Pain 3/10; 12:00 BP 143 / 108; Pulse 108; Resp 16; Pulse Ox 93% on R/A; cm10 13:00 BP 167 / 105; Pulse 111; Resp 18; Pulse Ox 95% on R/A; cm10 13:19 BP 145 / 101; Pulse 87; Resp 19; Pulse Ox 100% on R/A; cm10 10:51 Body Mass Index 41.84 (136.08 kg, 180.34 cm) ll1 10:51 Pain Scale: Adult ll1 ED Course: 10:42 Patient arrived in ED. ll1 10:43 Mohsen Sands MD is Attending Physician. dione 10:43 Arm band placed on Patient placed in an exam room, on a stretcher. ll1 10:44 Triage completed. ll1 11:01 CPK Sent. bc6 11:01 Lipase Sent. bc6 11:01 Troponin High Sensitivity Sent. bc6 11:01 Acetaminophen Sent. bc6 11:01 Basic Metabolic Panel Sent. bc6 11:01 CBC with Diff Sent. bc6 11:01 ETOH Level Sent. bc6 11:01 Hepatic Function Sent. bc6 11:01 PT-INR Sent. bc6 11:01 Ptt, Activated Sent. bc6 11:01 Salicylate Sent. bc6 11:01 Initial lab(s) drawn, by me, sent to lab. Maintain EMS IV. Dressing intact. Good blood bc6 return noted. Site clean \\T\\ dry. Gauge \\T\\ site: 18 \\T\\ RAC. Flushed with 10 mL NS. 11:03 Patient has correct armband on for positive identification. Bed in low position. Call kc6 light in reach. Side rails up X2. Security at bedside. Seizure precautions initiated. playground monitor on. Pulse ox on. NIBP on. Door closed. Noise minimized. Lights dimmed. Pillow given. 11:03 Patient maintains SpO2 saturation greater than 95% on room air. kc6 11:05 CT Head Brain wo Cont In Process Unspecified. EDMS 11:19 Client placed on continuous cardiac and pulse oximetry monitoring. NIBP monitoring ap3 applied. playground monitor on. 11:33 Lesly Bob, RN is Primary Nurse. [facility] 11:40 Chest Single View XRAY In Process Unspecified. EDMS 13:11 Sherif Rodriguez MD is Referral Physician. [facility] 13:56 Provided Education on: Follow-up instructions. [facility] 13:56 No provider procedures requiring assistance completed. IV discontinued, intact, cm10 bleeding controlled, No redness/swelling at site. Pressure dressing applied. Administered Medications: 11:24 Drug: Thiamine IV 100 mg IV at per protocol once Route: IV; Rate: per protocol; Site: [facility] right antecubital; 13:54 Follow up: Response: No adverse reaction; IV Status: Completed infusion 10 11:24 Drug: foLIC Acid IVPB 1 mg IVPB once Route: IVPB; Site: right antecubital; [facility] 13:57 Follow up: Response: No adverse reaction; IV Status: Completed infusion 10 11:24 Drug: NS 0.9% IV 1000 ml IV at 1000 ml once; to be given as a bolus over 60 minutes [facility] Route: IV; Rate: 1000 ml; Site: right antecubital; 13:55 Follow up: Response: No adverse reaction; IV Status: Completed infusion; IV Intake: cm10 1000ml 11:24 Drug: Famotidine IVP 20 mg IVP once; dilute with 10 mL 0.9% NaCl; give over 2 minutes [facility] Route: IVP; Site: right antecubital; 13:54 Follow up: Response: No adverse reaction [facility] 11:55 Drug: Banana Bag - (Multivitamin IV 1 amp, NS 0.9% IV 1000 ml, Thiamine IV 100 mg, 6 foLIC Acid IVPB 1 mg) IV at bolus once Route: IV; Rate: bolus; Site: right antecubital; 13:54 Follow up: Response: No adverse reaction; IV Status: Completed infusion; IV Intake: cm10 700ml 13:14 Drug: Potassium PO Effervescent Tablet 25 mEq PO once; dissolve in 4 ounces of water or cm10 juice Route: PO; 13:54 Follow up: Response: No adverse reaction cm10 13:14 Drug: Metoprolol IVP 5 mg IVP once; Hold for SBP <100 or HR <60. Route: IVP; Site: 10 right antecubital; 13:54 Follow up: Response: No adverse reaction cm10 13:14 Drug: Metoprolol PO 50 mg PO once Route: PO; cm10 13:54 Follow up: Response: No adverse reaction cm10 13:14 Drug: chlordiazePOXIDE PO 50 mg PO once Route: PO; cm10 13:54 Follow up: Response: No adverse reaction cm10 13:57 Not Given (Physician Discretion): ativan2 mg IVP once cm10 Medication: 13:56 VIS not applicable for this client. cm10 Intake: 13:54 IV: 700ml; Total: 700ml. cm10 13:55 IV: 1000ml; Total: 1700ml. cm10 Outcome: 13:11 Discharge ordered by . dione 13:56 Discharged to Law Enforcement cm10 13:56 Condition: good 13:56 Discharge instructions given to patient, police, Instructed on discharge instructions, follow up and referral plans. medication usage, Demonstrated understanding of instructions, follow-up care, medications, Prescriptions given X 3, 13:56 Patient left the ED. cm10 Signatures: Dispatcher [employer] EDMS Mohsen Sands MD MD cha Prokisch, Amanda, RN RN ap3 Bhavik Hong RN RN ll1 Lesly Bob RN RN kc6 Doreen Clement6 Mayda Martinez, RN RN cm10 Corrections: (The following items were deleted from the chart) 10:51 10:43 Chief complaint: Patient states: ETOH withdrawal, in [place] ll1 ll1
[2024-02-02 15:30] VITALS: TEMP 97.7
[2024-02-02 15:34] VITALS: BP 145/101; O2SAT 100
--- NOTE | 2024-02-04 09:49 | EKG ---
Test Date: 2024-02-02 Test Time: 10:57:33 Area Mechanic: RADHA MEASUREMENT RESULTS: Intervals: Rate: 109 CT: 170 QRSD: 84 QT: 356 QTc: 479 [place]: P: 48 CT: 170 QRS: 51 T: 62 INTERPRETIVE STATEMENTS: Sinus tachycardia Otherwise normal ECG Compared to ECG 11/13/2016 18:39:02 Sinus rhythm no longer present Electronically Signed On 02-04-24 09:47:25 [employer] by Zac Hopper
== END 2024-02-02 13:56 | disposition home or self-care (01) ==
LOC: ER 10:37
DX: F10.239 Alcohol dependence with withdrawal, unspecified (principal); E87.6 Hypokalemia; I10 Essential (primary) hypertension; E66.9 Obesity, unspecified
CPT/HCPCS: 96365; 96367; 96368; 93005; 85025; 80048; 36415; 82550; 85610; 80076; 85730; 84484; 83690; 70450; 71045; 96375; 99285; 96366; 80143; 80179; 82077; J3411 ×2; J7030 ×2

== ENCOUNTER 2024-02-03 11:50 | Emergency (ER) | payer MEDICAID ==
[2024-02-03] MEDS ORDERED: KETOROLAC 30 MG/ML INJ ONE (11:57)
--- NOTE | 2024-02-03 12:03 | EDPHYS ---
Physician Documentation [facility] Name: Kevin Virgen Age: 63 yrs Sex: Male : 1960 Arrival Date: 02/03/2024 Time: 11:50 Bed 13 Private MD: ED Physician Selwyn Srivastava HPI: 02/02 12:03 This 63 yrs old Male presents to ER via EMS with complaints of Back Pain. rt 12:03 Patient presents to the ED with worsening of his chronic back pain since being arrested rt 2 days ago. Attributes this to the bed at the care home. The patient reports that he has a tingling sensation that goes down the back of his leg. Denies other acute complaints at this time, symptoms are moderate in severity, aching nature, not otherwise radiating, no other aggravating elevating factors.. Historical: - Allergies: 11:56 NKDA; cm10 - PMHx: 11:56 Arthritis; Chronic pain; Diverticulitis; Enlarged Heart; Gout; Hypertensive disorder; cm10 Hypothyroidism; pancreatic and renal tumor; - Immunization history:: Adult Immunizations unknown. - Infectious Disease History:: Denies. - Social history:: Smoking status: unknown. - Family history:: not pertinent. ROS: 12:03 Constitutional: Negative for fever, chills, and weight loss, rt 12:03 Cardiovascular: Negative for chest pain, palpitations, and edema, Respiratory: Negative for shortness of breath, cough, wheezing, and pleuritic chest pain, Abdomen/GI: Negative for abdominal pain, nausea, vomiting, diarrhea, and constipation, Skin: Negative for injury, rash, and discoloration, Neuro: Negative for headache, weakness, numbness, tingling, and seizure, 12:03 Back: Positive for pain at rest, pain with movement, Exam: 12:03 Constitutional: This is a well developed, well nourished patient who is awake, alert, rt and in no acute distress. Head/Face: Normocephalic, atraumatic. Chest/axilla: Normal chest wall appearance and motion. Nontender with no deformity. No lesions are appreciated. Cardiovascular: Regular rate and rhythm with a normal S1 and S2. No gallops, murmurs, or rubs. Normal PMI, no JVD. No pulse deficits. Respiratory: Lungs have equal breath sounds bilaterally, clear to auscultation and percussion. No rales, rhonchi or wheezes noted. No increased work of breathing, no retractions or nasal flaring. Abdomen/GI: Soft, non-tender, with normal bowel sounds. No distension or tympany. No guarding or rebound. No evidence of tenderness throughout. Skin: Warm, dry with normal turgor. Normal color with no rashes, no lesions, and no evidence of cellulitis. 12:03 Back: Skin normal, no focal areas of tenderness, 12:03 Neuro: Strength and sensation intact in bilateral lower extremities, Vital Signs: 11:54 BP 128 / 97; Pulse 94; Resp 16; Temp 97.8; Pulse Ox 97% on R/A; Weight 136.08 kg; cm10 Height 5 ft. 11 in. ; Pain 7/10; 11:54 Body Mass Index 41.84 (136.08 kg, 180.34 cm) cm10 11:54 Pain Scale: Adult cm10 MDM: 11:54 Medical Screening Exam initiated rt 12:03 Differential diagnosis: Chronic back pain, disc disease. Data reviewed: vital signs, rt nurses notes. Test considered but Not performed: Other Details Patient has worsening of his chronic pain, imaging of the spine is not indicated. Counseling: I had a detailed discussion with the patient and/or guardian regarding the historical points, exam findings, and any diagnostic results supporting the discharge/admit diagnosis, the need for outpatient follow up. Administered Medications: 12:03 Drug: Ketorolac IM 30 mg IM once Route: IM; Site: right vastus lateralis; cm10 12:08 Follow up: Response: No adverse reaction cm10 Disposition Summary: 02/03/24 12:02 Discharge Ordered Notes: Location: Law Enforcement rt Problem: chronic rt Symptoms: are unchanged rt Condition: Stable rt Diagnosis - Chronic back pain rt Followup: rt - With: Private Physician - When: 2 - 3 days - Reason: Discharge Instructions: - Discharge Summary Sheet rt - Chronic Back Pain rt Forms: - Medication Reconciliation Form rt - Antibiotic Education rt - Prescription Opioid Use rt - Patient Portal Instructions rt - Leadership Thank You Letter rt Signatures: Selwyn Srivastava MD MD rt Mayda Martinez RN RN cm10 Corrections: (The following items were deleted from the chart) 11:56 11:56 Allergies: Unable to obtain; cm10 cm10 11:56 11:56 Allergies: No Allergy Information Available; cm10 cm10
--- NOTE | 2024-02-03 12:03 | ER ---
Nurse's Notes [facility] Name: Kevin Virgen Age: 63 yrs Sex: Male : 1960 Arrival Date: 02/03/2024 Time: 11:50 Bed 13 Private MD: Diagnosis: Chronic back pain Presentation: 02/02 11:54 Chief complaint: Patient states: CHRONIC BACK PAIN WORSE THE LAST 2 DAYS AFTER cm10 "SLEEPING ON THAT CONCRETE BLOCK." PT ARRIVED IN CUSTODY OF [employer]. 2 OFFICERS AT BEDSIDE. Coronavirus screen: Client denies travel out of the [place] in the last 14 days. Ebola Screen: Patient denies travel to an Ebola-affected area in the 21 days before illness onset. No symptoms or risks identified at this time. Initial Sepsis Screen: Does the patient meet any 2 criteria? Altered Mental Status. Does the patient have a suspected source of infection? No. Patient's initial sepsis screen is negative. Risk Assessment: Do you want to hurt yourself or someone else? Patient reports no desire to harm self or others. Onset of symptoms was February 01, 2024. 11:54 Method Of Arrival: EMS: [facility] cm10 11:54 Acuity: SANJUANA 4 cm10 Triage Assessment: 11:56 General: Appears in no apparent distress. comfortable, Behavior is calm, cooperative. cm10 Pain: Complains of pain in back Pain does not radiate. Pain currently is 7 out of 10 on a pain scale. Quality of pain is described as sharp, Pain began years ago. Neuro: No deficits noted. Level of Consciousness is awake, alert, obeys commands, Oriented to person, place, time, situation, Appropriate for age. Respiratory: No deficits noted. Airway is patent Respiratory effort is even, unlabored, Respiratory pattern is regular, symmetrical. Musculoskeletal: Range of motion: intact in all extremities, Reports pain in back. Historical: - Allergies: 11:56 NKDA; cm10 - PMHx: 11:56 Arthritis; Chronic pain; Diverticulitis; Enlarged Heart; Gout; Hypertensive disorder; cm10 Hypothyroidism; pancreatic and renal tumor; - Immunization history:: Adult Immunizations unknown. - Infectious Disease History:: Denies. - Social history:: Smoking status: unknown. - Family history:: not pertinent. Screenin:57 [facility] ED Fall Risk Assessment (Adult) History of falling in the last 3 months, cm10 including since admission No falls in past 3 months (0 pts) Confusion or Disorientation No (0 pts) Intoxicated or Sedated No (0 pts) Impaired Gait No (0 pts) Mobility Assist Device Used No (0 pt) Altered Elimination No (0 pt) Score/Fall Risk Level 0 - 2 = Low Risk Oriented to surroundings, Maintained a safe environment, Hourly rounding (assess needs \\T\\ fall precautionary measures) done. Abuse screen: Denies threats or abuse. Denies injuries from another. Nutritional screening: No deficits noted. Tuberculosis screening: No symptoms or risk factors identified. Vital Signs: 11:54 BP 128 / 97; Pulse 94; Resp 16; Temp 97.8; Pulse Ox 97% on R/A; Weight 136.08 kg; cm10 Height 5 ft. 11 in. ; Pain 7/10; 11:54 Body Mass Index 41.84 (136.08 kg, 180.34 cm) cm10 11:54 Pain Scale: Adult cm10 ED Course: 11:54 Patient arrived in ED. cm10 11:54 Selwyn Srivastava MD is Attending Physician. rt 11:55 Triage completed. cm10 11:56 Arm band placed on right wrist. Patient placed in an exam room, on a stretcher. cm10 11:57 Patient has correct armband on for positive identification. Bed in low position. Call cm10 light in reach. Side rails up X2. Provided Education on: ER PROCESS AND PROCEDURES. Pulse ox on. NIBP on. 12:03 No provider procedures requiring assistance completed. Patient did not have IV access cm10 during this emergency room visit. Administered Medications: 12:03 Drug: Ketorolac IM 30 mg IM once Route: IM; Site: right vastus lateralis; cm10 12:08 Follow up: Response: No adverse reaction cm10 Medication: 11:57 VIS not applicable for this client. cm10 Outcome: 12:02 Discharge ordered by . rt 12:03 Discharged to Law Enforcement cm10 12:03 Condition: good 12:03 Discharge instructions given to patient, Instructed on discharge instructions, follow up and referral plans. Demonstrated understanding of instructions, follow-up care, 12:09 Patient left the ED. cm10 Signatures: Selwyn Srivastava MD MD rt Mayda Martinez RN RN cm10 Corrections: (The following items were deleted from the chart) 11:56 11:56 Allergies: Unable to obtain; cm10 cm10 56 11:56 Allergies: No Allergy Information Available; 10 cm10
[2024-02-03 12:14] VITALS: BP 128/97; TEMP 97.8; O2SAT 97
== END 2024-02-03 12:09 ==
LOC: ER 11:50
DX: M54.9 Dorsalgia, unspecified (principal)
CPT/HCPCS: 96372; 99284

== ENCOUNTER 2024-11-23 21:51 | Emergency (ER) | payer MEDICAID ==
--- NOTE | 2024-11-23 23:01 | ER ---
Nurse's Notes [facility] Name: Kevin Virgen Age: 63 yrs Sex: Male : 1960 Arrival Date: 11/23/2024 Time: 21:51 Bed 17 Private MD: Diagnosis: Presentation: 11/23 21:56 Chief complaint: Patient states: TOOTHACHE IN THE LAST TOOTH BOTTOM RIGHT STARTING dd2 TODAY. Coronavirus screen: At this time, the client does not indicate any symptoms associated with coronavirus-19. Ebola Screen: No symptoms or risks identified at this time. Initial Sepsis Screen: Does the patient meet any 2 criteria? No. Patient's initial sepsis screen is negative. Does the patient have a suspected source of infection? No. Patient's initial sepsis screen is negative. Risk Assessment: Do you want to hurt yourself or someone else? Patient reports no desire to harm self or others. Onset of symptoms was November 23, 2024. 21:56 Method Of Arrival: Ambulatory dd2 21:56 Acuity: SANJUANA 4 dd2 Triage Assessment: 21:59 General: Appears in no apparent distress. uncomfortable, Behavior is calm, cooperative, dd2 appropriate for age. Pain: Complains of pain in lower right third molar. EENT: Reports pain in lower right third molar. Historical: - Allergies: 21:59 NKDA; dd2 - PMHx: 21:59 Arthritis; Chronic pain; Diverticulitis; Enlarged Heart; Gout; Hypertensive disorder; dd2 Hypothyroidism; pancreatic and renal tumor; - PSHx: 21:59 RT KIDNEY REMOVED (pancreatic and renal tumor); Cholecystectomy; dd2 - Immunization history:: Adult Immunizations up to date. - Infectious Disease History:: Denies. - Social history:: Smoking status: Patient denies any tobacco usage or history of. Screenin:17 [facility] ED Fall Risk Assessment (Adult) History of falling in the last 3 months, kt5 including since admission No falls in past 3 months (0 pts) Confusion or Disorientation No (0 pts) Intoxicated or Sedated No (0 pts) Impaired Gait No (0 pts) Mobility Assist Device Used No (0 pt) Altered Elimination No (0 pt) Score/Fall Risk Level 0 - 2 = Low Risk Oriented to surroundings, Maintained a safe environment. Abuse screen: Denies threats or abuse. Nutritional screening: No deficits noted. Tuberculosis screening: No symptoms or risk factors identified. Assessment: 22:17 General: Appears in no apparent distress. uncomfortable, Behavior is calm, cooperative, kt5 appropriate for age. Pain: Complains of pain in lower right third molar Pain radiates to right submandibular area and right sternocleidomastoid Pain currently is 10 out of 10 on a pain scale. Quality of pain is described as sharp. Neuro: No deficits noted. Traylor Agitation-Sedation Scale (RASS): 0 - Alert and Calm Level of Consciousness is awake, alert, obeys commands, Oriented to person, place, time, situation. Cardiovascular: No deficits noted. Heart tones S1 S2 present Capillary refill < 3 seconds Clubbing of nail beds is absent JVD is present Pulses are all present. Edema is absent. Respiratory: No deficits noted. Airway is patent Trachea midline Respiratory effort is even, unlabored, Respiratory pattern is regular, symmetrical. GI: No deficits noted. No signs and/or symptoms were reported involving the gastrointestinal system. Abdomen is round non-distended, Bowel sounds present X 4 quads. Abd is soft and non tender X 4 quads. : No deficits noted. No signs and/or symptoms were reported regarding the genitourinary system. EENT: pain on lower right side of mouth. Derm: No deficits noted. No signs and/or symptoms reported regarding the dermatologic system. Skin is intact, Skin is dry, Skin is pink, warm \T\ dry. Musculoskeletal: No deficits noted. No signs and/or symptoms reported regarding the musculoskeletal system. 22:41 General: pt is not in room to medicate, charge nurse aware. kt5 Vital Signs: 21:56 BP 120 / 80; Pulse 97; Resp 17; Temp 98.1; Pulse Ox 96% on R/A; Weight 108.86 kg; dd2 Height 5 ft. 11 in. ; Pain 10/10; 21:56 Body Mass Index 33.47 (108.86 kg, 180.34 cm) dd2 21:56 Pain Scale: Adult dd2 ED Course: 21:53 Patient arrived in ED. mr 21:55 [facility]. cp 21:55 Mohsen Sands MD is Attending Physician. cp 21:59 Triage completed. dd2 21:59 Arm band placed on right wrist. dd2 22:16 Gretchen Mortensen, RN is Primary Nurse. kt5 22:17 Bed in low position. Call light in reach. Side rails up X 1. Adult w/ patient. Client kt5 placed on continuous cardiac and pulse oximetry monitoring. NIBP monitoring applied. Door closed. Noise minimized. Administered Medications: 23:28 Not Given (Patient Eloped): lidocaine(1 %) 5 ml 5 ml Infiltration once; to bedside kt5 23:28 Not Given (Patient Eloped): bupivacaine(0.5 %) 10 ml 10 ml Infiltration once kt5 23:28 Not Given (Patient Eloped): hydrocodone-acetaminophen(7.5 mg-325 mg) 1 tabs PO once; kt5 RASS on ADMIN: Combtv4, Very Agttd3, Agttd2, Rstlss1, AlertClm0, Drwsy-1, Lt Sdtn-2, Mod Sdtn-3, Dp Sdtn-4, UnArsble-5 23:28 Not Given (Patient Eloped): [id number] mg PO once kt5 23:28 Not Given (Patient Eloped): [id number] mg PO once kt5 Medication: 22:17 VIS not applicable for this client. kt5 Outcome: 23:26 Eloped from patient exam room, after seeing physician kt5 23:26 Condition: stable 23:26 Discharge instructions given to pt eloped, no discharge instructions given 23:28 Patient left the ED. kt5 Signatures: Lea Green, Reg Reg mr Neri EUNICE Connolly PA-C, cp, DIANA, RN RN dd2 Gretchen Mortensen, RN RN kt5
--- NOTE | 2024-11-23 23:29 | EDPHYS ---
Physician Documentation [facility] Name: Kevin Virgen Age: 63 yrs Sex: Male : 1960 Arrival Date: 11/23/2024 Time: 21:51 Bed 17 Private MD: ED Physician Mohsen Sands HPI: 11/23 22:20 This 63 yrs old Male presents to ER via Ambulatory with complaints of cp Toothache. 22:20 The patient presents with pain. The problem is located in the right lower jaw. Onset: cp The symptoms/episode began/occurred today. Duration: The symptoms are continuous, and are steadily getting worse. Historical: - Allergies: 21:59 NKDA; dd2 - PMHx: 21:59 Arthritis; Chronic pain; Diverticulitis; Enlarged Heart; Gout; Hypertensive disorder; dd2 Hypothyroidism; pancreatic and renal tumor; - PSHx: 21:59 RT KIDNEY REMOVED (pancreatic and renal tumor); Cholecystectomy; dd2 - Immunization history:: Adult Immunizations up to date. - Infectious Disease History:: Denies. - Social history:: Smoking status: Patient denies any tobacco usage or history of. ROS: 22:25 Constitutional: Negative for body aches, chills, fever, poor PO intake, cp 22:25 ENT: Positive for dental pain, Negative for drainage from ear(s), ear pain, sore cp throat, difficulty swallowing, difficulty handling secretions, 22:25 Respiratory: Negative for cough, shortness of breath, wheezing, 22:25 Neuro: Negative for altered mental status, dizziness, headache, weakness, 22:25 All other systems are negative, Exam: 22:25 Head/Face: Normocephalic, atraumatic. cp 22:25 Constitutional: The patient appears in no acute distress, alert, awake, non-toxic, well developed, well nourished, uncomfortable, 22:25 Eyes: Periorbital structures: appear normal, Conjunctiva: normal, no exudate, no injection, Sclera: no appreciated abnormality, Lids and lashes: appear normal, bilaterally, 22:25 ENT: External ear(s): are unremarkable, Nose: is normal, Mouth: Lips: moist, Oral mucosa: moist, Posterior pharynx: Airway: no evidence of obstruction, patent, Dental exam: abscess, is not appreciated, dental caries, that is moderate, diffusely, gum swelling, that is mild, pain, that is severe, specifically in the lower right second molar (#31), Voice: is normal, 22:25 Neck: ROM/movement: is normal, is supple, without pain, no range of motions limitations, Lymph nodes: no appreciated lymphadenopathy, 22:25 Chest/axilla: Inspection: normal, 22:25 Cardiovascular: Rate: normal, Rhythm: regular, 22:25 Respiratory: the patient does not display signs of respiratory distress, Respirations: normal, Breath sounds: are clear throughout, no decreased breath sounds, no stridor, no wheezing, Vital Signs: 21:56 BP 120 / 80; Pulse 97; Resp 17; Temp 98.1; Pulse Ox 96% on R/A; Weight 108.86 kg; dd2 Height 5 ft. 11 in. ; Pain 10/10; 21:56 Body Mass Index 33.47 (108.86 kg, 180.34 cm) dd2 21:56 Pain Scale: Adult dd2 MDM: 22:00 Medical Screening Exam initiated dione 23:00 Data reviewed: vital signs, nurses notes. cp Administered Medications: 23:28 Not Given (Patient Eloped): lidocaine(1 %) 5 ml 5 ml Infiltration once; to bedside kt5 23:28 Not Given (Patient Eloped): bupivacaine(0.5 %) 10 ml 10 ml Infiltration once kt5 23:28 Not Given (Patient Eloped): hydrocodone-acetaminophen(7.5 mg-325 mg) 1 tabs PO once; kt5 RASS on ADMIN: Combtv4, Very Agttd3, Agttd2, Rstlss1, AlertClm0, Drwsy-1, Lt Sdtn-2, Mod Sdtn-3, Dp Sdtn-4, UnArsble-5 23:28 Not Given (Patient Eloped): [id number] mg PO once kt5 23:28 Not Given (Patient Eloped): [id number] mg PO once kt5 Disposition Summary: 11/23/24 23:00 Eloped Notes: Disposition: before being seen by provider vc1 Reason: unknown vc1 Addendum: 11/27/2024 11:33 Co-signature as Attending Physician, Mohsen Sands MD I agree with the assessment and c vo plan of care. Signatures: Mohsen Sands MD MD cha Page, Corey, EUNICE PATrang Powers cp RN RN vc1 WILIAM ANGULO RN RN dd2 Gretchen Mortensen RN RN kt5 Corrections: (The following items were deleted from the chart) 11/24 23:20 09 23:20 Data reviewed: vital signs, nurses notes, cp cp
[2024-11-23 23:35] VITALS: BP 120/80; TEMP 98.1; O2SAT 96
== END 2024-11-23 23:28 | disposition left against medical advice (07) ==
LOC: ER 21:51
DX: Z53.21 Procedure and treatment not carried out due to patient leaving prior to being seen by health care provider (principal)
CPT/HCPCS: 99283